=== PATIENT | female | born 1950 | race Caucasian/White ===

== ENCOUNTER 2016-07-08 22:47 | Emergency (ER) | payer MEDICARE ==
[~2016-07-08] VITALS: Ht 157.5 cm; Wt 52.3 kg
[~2016-07-08 22:47] MED LIST: AMLO10TA3 PO; LEVO50TA6 PO; TEMA7.5C14 PO; TRAM50TA2 PO; WALK1EAC55
[2016-07-08 22:54] VITALS: PULSE 113; RESP 20; O2SAT 100
--- NOTE | 2016-07-08 23:02 | ED.REPORT ---
HPI-General Illness Date of Service Jul 08, 2016 ED Provider: Wilbert Bauman MD Patient is a 66 year old female with a history of hypertension, COPD, GERD, depression, anxiety, and chronic nausea and vomiting due to aerophagia who presents to the ED with multiple medical complaints of various onsets. The patient states that she has had severe back pain for some time, worse in severity tonight. The patient states that her pain is especially severe if she sits down and that her pain is only improved with walking. The patient was incontinent of urine one night, ruining her bed. She has had to sleep on a pull- out mattress since that time, which has aggravated her back further. Patient has not been incontinent of urine since that episode. The patient states she begins to vomit whenever she stops walking for too long. However her ability to walk is being compromised by several musculoskeletal complaints. Her right knee and right hip are also causing her pain, which prevents her from walking. She also reports left ankle pain, stating that bearing any weight on her foot causes her extreme pain. The patient also states that she does not currently have any medication for anxiety or depression. She is currently very anxious. She attempted to speak with her physician about her lack of medications several days ago, but she missed the call. Patient also has a history of aerophagia, stating that her anxiety is making her aerophagia worse. While describing her symptoms, she states that each of these complaints it "killing her", often screaming out in pain. Nursing Notes Stated Complaint: ABDOMINAL PAIN, VOMITING Chief Complaint: General Complaint Nursing Notes Reviewed: Yes Allergies: Coded Allergies: Sulfa (Sulfonamide Antibiotics) (Verified Allergy, Severe, rash ithcy, 01/22/16) Scheduled Amitriptyline (Amitriptyline) 10 Mg Tablet 10 MG PO HS Amlodipine (Amlodipine) 10 Mg Tablet 10 MG PO DAILY Amlodipine (Amlodipine) 10 Mg Tablet 10 MG PO DAILY Fluoxetine (Fluoxetine) 40 Mg Capsule 40 MG PO DAILY Levothyroxine (Levothyroxine) 50 Mcg Tablet 100 MCG PO DAILY Levothyroxine (Synthroid) 50 Mcg Tablet 50 MCG PO DAILY Scheduled PRN Lorazepam (Lorazepam) 1 Mg Tablet 1 MG PO TID PRN PRN For Anxiety Temazepam (Temazepam) 7.5 Mg Capsule 7.5 MG PO HS PRN PRN Insomnia Tramadol (Tramadol) 50 Mg Tablet 100 MG PO BID PRN PRN For Pain General Time Seen by MD: 23:02 Chief Complaint Abdominal pain, Vomiting Hx Obtained From: Patient Arrived By: Walk-in Sudden in Onset?: No Onset Occurred: Onset unknown Symptom Duration: Since onset Location: : Ankle left: Back Quality: Painful Severity: Current: Severe Severity: Maximum: Severe Recent Healthcare: No recent doctor visit, No recent hospitalization Similar Sx Previous: Yes Past Medical History Past Medical History chronic nausea and vomiting - unknown cause Herniated dics low back Right knee tendinitis and bursitis Depression and anxiety gallstones history of blood transfusion hypothyroidism history of severe sepsis and respiratory failure due to aspiration pneumonia Reports: COPD, GERD, Hypertension Past Surgical History Reports: Cholecystectomy Family History noncontributory Smoking History Never Smoker Social History Alcohol Use: Denies alcohol use Drug Use: Denies drug use Other Social History: Good social support, Local resident Ambulatory Status Independent Review of Systems Full Review of Systems GI: Reports: Abdominal pain, Nausea, Vomiting Female: Reports: Incontinence Musculoskeletal: Reports: Back pain, Extremity pain Psychiatric: Reports: Anxiety, Depression Complete sys rev & neg: except as marked. Physical Exam Vital Signs Vital Signs Date Time Temp Pulse Resp B/P Pulse Ox O2 Delivery O2 Flow Rate FiO2 07/09/16 00:36 109 16 186/81 97 Room Air 07/08/16 22:54 36.3 113 20 100 Room Air Initial VS: Reviewed Head / Eyes: Atraumatic, Normocephalic, PERRL ENT: Conjunctiva normal, No scleral icterus Neck: Supple, Full range of motion Skin: Warm, Dry, No cyanosis Neurologic: Alert, Oriented, Nonfocal General/Constitutional: Awake, Alert Behavior: Positive: Anxious pacing around the room, periodically screaming out in pain no physiologic distress hyperaesthetic, reactive to any touch exam limited by mental status Respiratory / Chest: No respiratory distress Cardiovascular: Heart rate NL Abdomen: Soft, Non-tender, No guarding, No rebound Back: No midline vertebral tend Flank / Spine / Paraspinal: Positive: Lumbar paraspinal tend... (over the sacrum) Lower Extremity / Pelvis / MS: No deformity, Neurologic intact, Vascular intact Ankle / Foot: No swelling, No erythema, Neurologic intact, Vascular intact both ankles are tneder, but no visible swelling bunion and hammer toe deformity of the right foot Abnormal Mood/Affect: Positive: Anxious Interpretation & Diagnostics X-Ray Interpretation Xray Interpretation: Impression: Constipation. Degenerative changes. No acute fracture. Study Performed: X-ray Lumbar Spine Interpretation / Wet Read by: Wet read ED physician Xray Interpretation: Impression: No acute fracture. X-Ray Ordered: Ankle left Xray Interpretation: Impression: No acute fracture. X-Ray Ordered: Hip right Re-Eval/Medical Decision Med Decision/Clinical Course 66-year-old female with severe anxiety, depression, and generalized pains that appear to be related mostly to osteoarthritis. I had a long discussion with her about the chronic management of this and the nonutility of pain medicines in the chronic setting. Strategies need to include physical therapy, suppression of transmission of the spinal level, treatment of depression and anxiety, and unfortunately, she is intolerant of NSAIDs with her multiple stomach issues. I renewed her noncontrolled meds including amlodipine levothyroxine and fluoxetine. I added 10 mg of amitriptyline nightly for sleep and for spinal level suppression of pain in pulses. She is seriously anxious and has previously been prescribed lorazepam, although she has not been on it recently we will give her a brief supply also of Ativan as a muscle spasm reduce her anxiety and, again until her family doctor can assess the situation and decide on continuation or not. She is discharged now much improved after taking her prescribed meds. Source of Hx: Old records Time of Eval: 00:21 Patient Status: Condition improved Re-Evaluation/Progress Note: Rechecked the patient to discuss the result of her x-rays. No acute problem was identified. She will be discharged with medications for her depression and anxiety. She will also be restarted on her other medications. Patient understands and agrees with the plan to be discharged home. Discharge instructions and follow-up discussed. All questions were addressed. Return to the ED warnings given. Counseled Regarding: Diagnosis, Need for follow-up, When/why to return to ED Discharge & Departure Primary Impression: Degenerative arthritis Osteoarthritis location: unspecified site Osteoarthritis type: unspecified Qualified Code: M19.90 - Unspecified osteoarthritis, unspecified site Additional Impressions: Anxiety Back pain Back pain location: low back pain Chronicity: acute Back pain laterality: unspecified Sciatica presence: with sciatica presence unspecified Qualified Code: M54.5 - Low back pain Depression Depression Type: major depressive disorder Major depression recurrence: recurrent Active/Remission status: currently active Major depression episode severity: unspecified Qualified Code: F33.9 - Major depressive disorder, recurrent, unspecified Hip pain Laterality: right Qualified Code: M25.551 - Pain in right hip Disposition: Home Discharge Condition All VS Reviewed: Yes Condition: Stable Patient Instructions: Acute Low Back Pain (ED), Generalized Anxiety Disorder ( ED), Major Depression (DC), Osteoarthritis (ED) Additional Instructions: Your x-ray shows widespread degenerative arthritis. This alone can account for your pain. The management of arthritis as a long-term issue, and needs to be undertaken by your primary care doctor. It is important that you follow-up closely with your doctor. Call her tomorrow for follow-up as soon as possible. Resume prescribed medicines. I can provide a two-week supply, until you can see your doctor. I cannot renew your tramadol, as this is a controlled substance. Resume your amlodipine, Synthroid, fluoxetine. I am adding lorazepam both for anxiety and for muscle relaxer. I am adding amitriptyline for nighttime use to aid with sleep, and to prevent pain transmission at the spinal level. Referrals: Karli Michaels (PCP) Scribe Attestation Portions of this note were transcribed by Italia Weiss. I, Dr. Bauman personally performed the history, physical exam and medical decision-making; I reviewed and confirmed the accuracy of the information in the transcribed note. Signed by: Lilian Augustin, 07/09/2016 0023 copies to: Karli Michaels Christopher W MD Jul 08, 2016 23:02 Italia Weiss Jul 08, 2016 23:09
[2016-07-08] MEDS ORDERED: LORazepam 1 mg Tablet PO ONE (23:25)
[2016-07-09] MEDS ORDERED: LEVO50TA83 PO (00:17)
[2016-07-09] MEDS ORDERED: LORA1TAB PO (00:17)
[2016-07-09] MEDS ORDERED: FLUO40CA PO (00:17)
[2016-07-09] MEDS ORDERED: AMLO10TA3 PO (00:17)
[2016-07-09] MEDS ORDERED: AMIT10TA6 PO (00:17)
[2016-07-09 00:36] VITALS: BP 186/81; PULSE 109; RESP 16; O2SAT 97
--- NOTE | 2016-07-09 08:42 | DRSVH ---
PROCEDURE: X-RAY LEFT ANKLE, MINIMUM THREE VIEWS ([id number]) INDICATIONS: pain, chronic and worse this week TECHNIQUE: 3 views of the ankle were acquired. COMPARISON: None. FINDINGS: Bones: No fractures or dislocations. Ankle mortise is normally aligned. No suspicious bony lesions . Soft tissues: No tibiotalar joint effusion. Achilles tendon appears normal. IMPRESSION: No displaced fracture seen. If there is continued pain, followup exam or additional eitan ging such as MRI or CT could be performed for further assessment. Dictated by: Mehrdad Figueroa RRA Interpreted: Ashley Bonilla MD on 07/09/2016 at 8:40 Transcribed by: SAARH on 07/09/2016 at 8:42 Approved by: Ashley Bonilla MD, PhD on 07/09/2016 at 18:03
--- NOTE | 2016-07-09 08:44 | DRSVH ---
PROCEDURE: X-RAY PELVIS W/LAT HIP (RT) ([id number]) INDICATIONS: pain, chronic and worse this week TECHNIQUE: AP pelvis with lateral view(s) of the right hip(s). COMPARISON: None. FINDINGS: Bones: No fractures or dislocations. Pelvic ring appears intact. No suspicious bony lesions. Mild joint narrowing with periarticular osteophyte formation. Soft tissues: The visualized bowel gas pattern is normal. No suspicious soft tissue calcifications. Surgical clip projected over the pelvis. IMPRESSION: Mild symmetric hip joint degeneration. Dictated by: Mehrdad Figueroa [facility] Interpreted: Ashley Bonilla MD on 07/09/2016 at 8:44 Transcribed by: SARAH on 07/09/2016 at 8:44 Approved by: Ashley Bonilla MD, PhD on 07/09/2016 at 18:04
--- NOTE | 2016-07-09 08:44 | DRSVH ---
PROCEDURE: X-RAY LUMBAR SPINE, 2 OR 3 VIEW INDICATIONS: pain, chronic and worse this week TECHNIQUE: 3 views of the lumbar spine were acquired. COMPARISON: None. FINDINGS: Bones: 5 [id number] vertebrae grade 1 retrolisthesis L4-L5. Multilevel disc degeneration, moder ate at the L5-S1 level. Lower lumbar spine facet joint arthropathy. No vertebral body compression f ractures. No suspicious bony lesions. Soft tissues: Overlying bowel gas pattern is normal. No suspicious soft tissue calcifications. Vas cular calcifications indicate atherosclerosis. IMPRESSION: Multilevel degenerative change. Dictated by: Mehrdad WOODS Interpreted: Ashley Bonilla MD on 07/09/2016 at 8:42 Transcribed by: SARAH on 07/09/2016 at 8:43 Approved by: Ashley Bonilla MD, PhD on 07/09/2016 at 18:04
== END 2016-07-09 00:36 | disposition home or self-care (01) ==
LOC: SED 22:47
DX: M47.897 Other spondylosis, lumbosacral region (principal); M54.5 Low back pain; F41.9 Anxiety disorder, unspecified; F33.9 Major depressive disorder, recurrent, unspecified; M25.551 Pain in right hip; I10 Essential (primary) hypertension; J44.9 Chronic obstructive pulmonary disease, unspecified; K21.9 Gastro-esophageal reflux disease without esophagitis; F45.8 Other somatoform disorders; Z88.2 Allergy status to sulfonamides

== ENCOUNTER 2016-08-23 15:39 | Emergency (ER) | payer MEDICARE ==
[~2016-08-23] VITALS: Ht 157.5 cm; Wt 56.8 kg
[~2016-08-23 15:39] MED LIST changes: +AMIT10TA6 PO; +FLUO40CA PO; +LEVO50TA83 PO; +LORA1TAB PO
[2016-08-23 15:41] VITALS: BP 181/115; PULSE 110; RESP 20; O2SAT 100
--- NOTE | 2016-08-23 18:01 | ED.REPORT ---
HPI-Extremity Problem Lower Date of Service August 23, 2016 ED Provider: Hugh Azevedo PA-C Mariangel is a 66-year-old female with a history of degenerative disc disease, aerophagia, bursitis presented with chief complaint of right knee pain. Patient states the pain has been worsening for the last 3 years. She can recall no recent trauma. She reports that the pain is so bad now that she cannot eat. She states that she feels dizzy from lack of eating. "Like my head is going to spin off." She reports walking a great deal to relieve her aerophagia, which aggravates her knee. Complains of back pain which she states is chronic and at baseline. It is typically treated with tramadol. She states that she only gets 3 a day and to 2 time is not enough to alleviate her pain. Denies fever, chills, bowel/bladder dysfunction, saddle anesthesia. Nursing Notes Stated Complaint: DIZZY, RIGHT KNEE PAIN AND BACK PAIN Chief Complaint: General Complaint Nursing Notes Reviewed: Yes Allergies: Coded Allergies: Sulfa (Sulfonamide Antibiotics) (Verified Allergy, Severe, rash ithcy, 03/01) Scheduled Amitriptyline (Amitriptyline) 10 Mg Tablet 10 MG PO HS Amlodipine (Amlodipine) 10 Mg Tablet 10 MG PO DAILY Amlodipine (Amlodipine) 10 Mg Tablet 10 MG PO DAILY Fluoxetine (Fluoxetine) 40 Mg Capsule 40 MG PO DAILY Levothyroxine (Levothyroxine) 50 Mcg Tablet 100 MCG PO DAILY Levothyroxine (Synthroid) 50 Mcg Tablet 50 MCG PO DAILY Scheduled PRN Lorazepam (Lorazepam) 1 Mg Tablet 1 MG PO TID PRN PRN For Anxiety Temazepam (Temazepam) 7.5 Mg Capsule 7.5 MG PO HS PRN PRN Insomnia Tramadol (Tramadol) 50 Mg Tablet 100 MG PO BID PRN PRN For Pain General Time Seen by MD: 17:29 Chief Complaint Knee injury right Past Medical History Past Medical History chronic nausea and vomiting - unknown cause Herniated dics low back Right knee tendinitis and bursitis Depression and anxiety gallstones history of blood transfusion hypothyroidism history of severe sepsis and respiratory failure due to aspiration pneumonia Reports: COPD, GERD, Hypertension Past Surgical History Reports: Cholecystectomy Family History noncontributory Smoking History Never Smoker Social History Alcohol Use: Denies alcohol use Drug Use: Denies drug use Other Social History: Good social support, Local resident Ambulatory Status Independent Review of Systems Negative unless stated otherwise in history of present illness Physical Exam General: Well appearing, well developed, well nourished, no acute distress. Sitting on the gurney eating cookies and a sandwich. Periodically becomes escalated during history taking stating "you are not helping me" Hip: Nontender Right knee: Normal to inspection, negative redness, swelling, heat. Global tenderness, greatest over medial joint line and tibial plateau. Patient would not tolerate range of motion, however noted to spontaneously range the knee while moving in bed. Right ankle: Normal to inspection, globally tender. Left knee: Normal to inspection, and over medial and lateral joint lines. Head: Atraumatic, normocephalic. Eyes: No scleral icterus or injection. No discharge. Vision grossly intact. ENT: Voice clear, hearing grossly intact. Respiratory: Regular rate and rhythm. Breath sounds present, clear to auscultation and equal bilaterally. No respiratory distress. No increased work of breathing, speaks in complete sentences. Cardiovascular: Regular rate and rhythm, without murmur, gallop or rub. No pedal edema. Skin: Warm and dry. Neurological: Antalgic gait. Otherwise nonfocal. Psychological: Alert and oriented 3. Extremely dramatic behavior. Initial Vital Signs Vital Signs (First) Date Time Temp Pulse Resp B/P Pulse Ox O2 Delivery O2 Flow Rate FiO2 08/23/16 15:41 36.8 110 20 181/115 100 Room Air Initial VS: Vital signs abnormal (tachycardia, elevated blood pressure) Interpretation & Diagnostics X-Ray Interpretation Xray Interpretation: PROCEDURE: X-RAY RIGHT KNEE, THREE VIEWS ([id number]) INDICATIONS: 66 year-old female with right knee pain.. IMPRESSION: No radiographic explanation for right knee pain. Interpretation / Wet Read by: Interpret - Radiologist, Interp - P Re-Eval/Medical Decision Med Decision/Clinical Course 66-year-old woman with a history of chronic knee and back pain presents with right knee pain. Reports her pain worsening over the last 3 years to the point where she is no longer able to eat. It is noted that she is eating in the exam room. Reports dizziness secondary to not eating. Physical examination reveals tenderness in many locations, including the medial joint line of her right knee , as well as her right ankle, left knee. At one point she yelled at me, indicating that my touching the handrail of her bed caused her right knee hurt. Patient is extremely dramatic, and often screaming that her knee hurts apparently without provocation. Offered acetaminophen and ketorolac for analgesia. X-ray of her right knee reveals no fractures. Patient departed before receiving results or discharge instructions. I do not believe her pain is caused by an immediately dangerous condition. Back pain is without red flag symptoms for cauda equina syndrome, abscess. I do not believe her knee pain is caused by a septic joint as there is no redness, swelling, heat. I believe she is competent to make this decision. Discharge & Departure Departure Notes Patient departed the department prior to receiving x-ray results or discharge instructions. I do not believe her pain is caused by an immediately dangerous condition. I believe she is competent to make this decision. Impression: Primary Impression: Right knee pain Chronicity: chronic Qualified Code: M25.561 - Pain in right knee Disposition: AGAINST MEDICAL ADVICE Discharge Condition All VS Reviewed: Yes Condition: Stable Referrals: Karli Michaels (PCP) EDSupervising Provider for APC: Burton Nelson MD copies to: Karli Michaels Seth PA-C August 23, 2016 18:01
[2016-08-23 18:25] VITALS: BP 186/89; PULSE 94; RESP 18; O2SAT 98
--- NOTE | 2016-08-23 19:23 | DRSVH ---
PROCEDURE: X-RAY RIGHT KNEE, THREE VIEWS ([id number]) INDICATIONS: 66 year-old female with right knee pain. TECHNIQUE: 3 views of the knee were acquired. COMPARISON: None. FINDINGS: Bones: No fractures or dislocations. No joint degeneration. No suspicious bony lesions. Soft tissues: No joint effusion. No suspicious soft tissue calcifications. IMPRESSION: No radiographic explanation for right knee pain. Dictated by: Jaycob Patel M.D. on 08/23/2016 at 19:21 Approved by: Jaycob Patel M.D. on 08/23/2016 at 19:21
[2016-08-24] MEDS ORDERED: TRAM50TA2 PO (09:26)
[2016-08-24] MEDS ORDERED: QUET50TA55 PO (12:47)
[2016-08-24] MEDS ORDERED: AMT50T PO (12:47)
[2016-08-24] MEDS ORDERED: LEVO50TA6 PO (12:47)
[2016-08-24] MEDS ORDERED: ALPR0.5T8 PO (12:47)
[2016-08-24] MEDS ORDERED: MIRT7.5T8 PO (12:47)
[2016-08-24] MEDS ORDERED: BUSP10TA2 PO (12:47)
[2016-08-24] MEDS ORDERED: ONDA-54 PO (12:47)
[2016-08-24] MEDS ORDERED: PANT40TA3 PO (12:47)
[2016-08-24] MEDS ORDERED: DULO20CA18 PO (12:47)
[2016-08-24] MEDS ORDERED: BACL10TA PO (12:47)
[2016-08-24] MEDS ORDERED: SODI1TAB2 PO (15:19)
== END 2016-08-23 19:35 | disposition home or self-care (01) ==
LOC: SED 15:39
DX: M25.561 Pain in right knee (principal); I10 Essential (primary) hypertension; K21.9 Gastro-esophageal reflux disease without esophagitis; Z86.19 Personal history of other infectious and parasitic diseases; Z88.2 Allergy status to sulfonamides
CPT/HCPCS: 73562; 96372; 99284; J1885

== ENCOUNTER 2016-08-24 04:02 | Inpatient (IN) | payer MEDICARE, OTHER ==
[2016-08-24] VITALS (7 sets, daily range): BP systolic 140–184; BP diastolic 82–116; PULSE 98–112; RESP 18–24; O2SAT 99–100
[~2016-08-24] VITALS: Ht 157.5 cm; Wt 56.1 kg
--- NOTE | 2016-08-24 04:09 | ED.REPORT ---
HPI-General Illness Date of Service August 24, 2016 ED Provider: Wilbert Bauman MD 66 year old female with a history of chronic nausea and vomiting, GERD, and cholecystectomy presents to the ER accompanied by her complaining of intractable nausea and vomiting onset yesterday afternoon. Patient denies fever and diarrhea. She also complains of chronic right knee pain secondary to tendonitis and bursitis. Nursing Notes Stated Complaint: GENERAL COMPLAINT Chief Complaint: General Complaint Nursing Notes Reviewed: Yes Allergies: Coded Allergies: Sulfa (Sulfonamide Antibiotics) (Verified Allergy, Severe, rash ithcy, 03/01) Scheduled Amitriptyline (Amitriptyline) 10 Mg Tablet 10 MG PO HS Amlodipine (Amlodipine) 10 Mg Tablet 10 MG PO DAILY Amlodipine (Amlodipine) 10 Mg Tablet 10 MG PO DAILY Fluoxetine (Fluoxetine) 40 Mg Capsule 40 MG PO DAILY Levothyroxine (Levothyroxine) 50 Mcg Tablet 100 MCG PO DAILY Levothyroxine (Synthroid) 50 Mcg Tablet 50 MCG PO DAILY Scheduled PRN Lorazepam (Lorazepam) 1 Mg Tablet 1 MG PO TID PRN PRN For Anxiety Temazepam (Temazepam) 7.5 Mg Capsule 7.5 MG PO HS PRN PRN Insomnia Tramadol (Tramadol) 50 Mg Tablet 100 MG PO BID PRN PRN For Pain General Time Seen by MD: 04:09 Chief Complaint Vomiting Hx Obtained From: Patient Arrived By: Walk-in Sudden in Onset?: No Onset Occurred: 1 day ago Symptom Duration: Since onset Associated with: Denies: Fever Similar Sx Previous: Yes Past Medical History Past Medical History chronic nausea and vomiting - unknown cause Herniated dics low back Right knee tendinitis and bursitis Depression and anxiety gallstones history of blood transfusion hypothyroidism history of severe sepsis and respiratory failure due to aspiration pneumonia Reports: COPD, GERD, Hypertension Past Surgical History Reports: Cholecystectomy Family History noncontributory Smoking History Never Smoker Social History Alcohol Use: Denies alcohol use Drug Use: Denies drug use Other Social History: Good social support, Local resident Ambulatory Status Independent Review of Systems Full Review of Systems Constitutional: Denies: Chills, Fever Respiratory: Denies: Non-productive cough Cardiovascular: Denies: Chest pain GI: Reports: Nausea, Vomiting, Denies: Constipation, Diarrhea Musculoskeletal: Reports: Joint pain (Right Knee) Complete sys rev & neg: except as marked. Physical Exam Vital Signs Vital Signs Date Time Temp Pulse Resp B/P Pulse Ox O2 Delivery O2 Flow Rate FiO2 08/24/16 04:09 36.4 103 24 181/99 99 Room Air Initial VS: Reviewed Head / Eyes: Atraumatic, Normocephalic, PERRL Neck: Supple, Non-tender, Full range of motion Respiratory: Breath sounds normal, Clear to auscultation, No respiratory distress Cardiovascular: Regular rate & rhythm, Heart sounds normal, Intact distal pulses Extremities: Vascular intact, Neuro intact, No swelling, No tenderness Skin: Warm, Dry, No cyanosis Neurologic: Alert, Oriented, Nonfocal General/Constitutional: Awake, Alert, Well developed Whiny. Dramatic. Abdomen: Soft, No guarding, No rebound Mildly tender Mildly protuberant Psychiatric: Not homicidal, No hallucinations, Cognitive function NL Odd affect. Interpretation & Diagnostics Lab Results Interpretation Result Diagram: 08/24/16 0515 08/24/16 0515 Test 08/24/16 05:15 White Blood Count 12.4th/mm3 (3.8-10.1) Red Blood Count 4.05mil/mm3 (3.90-5.20) Hemoglobin 12.0g/dL (12.0-15.6) Hematocrit 33.4% (35.0-46.0) Mean Corpuscular Volume 82.5fL (81-100) Mean Corpuscular Hemoglobin 29.6pg (27.0-35.0) Mean Corpuscular Hemoglobin Concent 35.9% (32.0-37.0) Red Cell Distribution Width 12.0% (12.3-15.4) Platelet Count 416bil/L (150-400) Neutrophils (%) (Auto) 84.5% (40-74) Lymphocytes (%) (Auto) 9.7% (14-46) Monocytes (%) (Auto) 4.7% (4-12) Eosinophils (%) (Auto) 0.3% (0-5) Basophils (%) (Auto) 0.2% (0-3) Prothrombin Time 9.4sec (8.1-12.5) Prothromb Time International Ratio 0.88ratio Sodium Level 122mEq/L (134-144) Potassium Level 3.8mEq/L (3.5-5.2) Chloride Level 83mEq/L (97-108) Carbon Dioxide Level 20mmol/L (18-29) Blood Urea Nitrogen 16mg/dL (8-27) Creatinine 0.59mg/dL (0.57-1.00) Estimat Glomerular Filtration Rate 146mL/min (>59) Glucose Level 104mg/dL (60-99) Calcium Level 9.7mg/dL (8.5-10.1) Magnesium Level 1.8mg/dL (1.6-2.6) Total Bilirubin 0.3mg/dL (0.0-1.2) Aspartate Amino Transf (AST/SGOT) 25U/L (0-50) Alanine Aminotransferase (ALT/SGPT) 20U/L (0-32) Alkaline Phosphatase 99U/L (25-165) Total Protein 7.8g/dL (6.4-8.4) Albumin 4.3g/dL (3.4-5.0) Lipase 16U/L (13-60) Hold Vasquez Top Tube Received (Received) ECG Interpretation ECG Interpretation: Sinus rhythm, rate 91 Right atrial enlargement Right axis deviation Consider LVH Time: 04:54 Interpreted by: ED physician Re-Eval/Medical Decision Med Decision/Clinical Course Continuing to have intermittent knee pain and nausea. Requesting pain meds and given Toradol and tramadol, which she has been prescribed in the past. Affect continues anxious, bizarre, manipulative. Signed out of [address] Almaguer Source of Hx: Old records Counseled Regarding: Diagnosis, Lab results Discharge & Departure Primary Impression: Intractable vomiting Additional Impression: Right knee pain Discharge Condition All VS Reviewed: Yes Condition: Stable Referrals: Karli Michaels (PCP) Care Transferred to: Dr. Almaguer Care Transferred at: 06:00 Lilian Attestation Portions of this note were transcribed by Rad Glynn. I, Dr. Bauman, personally performed the history, physical exam and medical decision-making; I reviewed and confirmed the accuracy of the information in the transcribed note. Signed by: Lilian Rivera, 08/24/2016 at *time* copies to: Karli Michaels Christopher W MD August 24, 2016 04:09 RAD GLYNN August 24, 2016 04:17
[2016-08-24] MEDS ORDERED: 0.9% Sodium Chloride 1,000 ML IV ONE (04:13)
[2016-08-24] MEDS ORDERED: Pantoprazole 4 mg/mL 10 mL Inj IVPUSH ONE (04:15)
[2016-08-24] MEDS ORDERED: Ondansetron 2 mg/mL 2 mL Inj IVPUSH ONE (04:15)
[2016-08-24 05:20] LABS: BASOPHILS % (AUTO) 0.2 % (0-3); EOSINOPHILS % (AUTO) 0.3 % (0-5); MONOCYTES % (AUTO) 4.7 % (4-12); Mean Corpuscular Hemoglobin 29.6 pg (27.0-35.0); Mean Corpuscular Volume 82.5 fL (81-100); NEUTROPHILS % (AUTO) 84.5 % (40-74); Platelet Count 416 bil/L (150-400)
[2016-08-24 05:35] LABS: INR 0.88 ratio
[2016-08-24 05:44] LABS: Magnesium 1.8 mg/dL (1.6-2.6)
[2016-08-24] MEDS ORDERED: Haloperidol 5 mg/mL Inj IVPUSH ONE (06:10)
[2016-08-24] MEDS ORDERED: 0.9% Sodium Chloride 50 ML ONE (06:14)
[2016-08-24 07:44] LABS: APPEARANCE,URINE CLEAR (CLEAR,HAZY); COLOR,URINE STRAW (YELLOW)
[2016-08-24 07:45] LABS: OCCULT BLOOD,URINE TRACE (NEGATIVE); UROBILINOGEN,URINE NORMAL (NORMAL)
--- NOTE | 2016-08-24 08:11 | DRSVH ---
PROCEDURE: CT ABDOMEN AND PELVIS WITH CONTRAST ([id number]) INDICATIONS: gen abd pain TECHNIQUE: After the administration of intravenous contrast, 5 mm thick sections acquired from the diaphragm to the symphysis. 5 mm coronal and sagittal reformats were acquired. For radiation dose reduction, the following was used: automated exposure control, adjustment of mA and/or kV according to patient ramy stone COMPARISON: [facility], CT, CT ABD PELVIS W CON, 01/22/2016, 23:50. FINDINGS: ABDOMEN: Lung bases: Lung bases are clear. Heart size is normal. Solid organs: Multiple stable hypodensities throughout the liver consistent with benign hepatic cysts . Otherwise the liver is normal. The spleen is normal in size and enhancement. Gallbladder is surgic ally absent. Biliary system is non dilated. Pancreas enhances normally. No adrenal nodules. Bilate ral prominent collecting systems with mild right-sided ureterectasis. There is a 9 mm linear density adjacent to the dependent bladder wall (se 2 im 59). Uterus is present. Peritoneum and bowel: Bowel loops demonstrate normal wall thickness and caliber. No free fluid or a ir. Nodes and vessels: No retroperitoneal or mesenteric adenopathy by size criteria. Aorta and inferior vena cava are normal in size. Miscellaneous: No ventral hernias. PELVIS: Genitourinary: Bladder wall thickness is normal. Miscellaneous: No inguinal hernias or adenopathy. Bones: No suspicious bony lesions. No vertebral body compression fractures. IMPRESSION: 1. Right-sided hydronephrosis and ureterectasis may represents the sequelae of a radiographically occ ult tiny distal right ureteral calculus or a recently passed calculus. If patient's clinical symptoms continue recommend a CT urogram to evaluate for noncalcified obstructing lesion. 2. Linear metallic density adjacent to or less likely in the posterior wall of the bladder likely rep resents a tubal occlusion device. Please correlate with clinical history for placement of tubal occlu kaylynn devices. 3. There are no urgent discrepancy with the pulmonary report. Dictated by: Mainor Dyer M.D. on 08/24/2016 at 7:59 Approved by: Mainor Dyer M.D. on 08/24/2016 at 8:09
[2016-08-24] MEDS ORDERED: MetoCLOpramide 5 mg/mL 2 mL Inj IVPUSH PRN (09:25)
[2016-08-24] MEDS ORDERED: HYDROmorphone 0.5 mg/0.5 mL iSecure Syringe IVPUSH PRN (09:25)
[2016-08-24] MEDS ORDERED: Ondansetron 2 mg/mL 2 mL Inj IVPUSH PRN ×2 (09:25)
[2016-08-24] MEDS ORDERED: Polyethylene Glycol (PEG) 17 Gm Powder PO PRN (09:25)
[2016-08-24] MEDS ORDERED: TRAM50TA2 PO (09:26)
[2016-08-24] MEDS: 0.9% Sodium Chloride 1,000 ML IV SCH ×2 (10:58→21:45)
[2016-08-24] MEDS: HYDROcodone-APAP 5-325 mg Tablet PO PRN ×3 (11:00→16:45)
--- NOTE | 2016-08-24 11:31 | NUR ---
MOC ARRIVAL Patient arrived from ER at 1015, report recieved from Lori Haddad RN. Patient came into ER c/o nausea and vomiting. She has denied n/v on MOC but c/o back and right knee pain, Percocet x1 given with good relief. Patient's Na 122, NS 100 started, MD made aware. Patient appears emotionaly liable, Hx of anxiety and depression. Admit and med rec completed, VS BP 160's/80, HR 100, resp 22, RA 94%.
[2016-08-24] MEDS ORDERED: ALPR0.5T8 PO (12:47)
[2016-08-24] MEDS ORDERED: MIRT7.5T8 PO (12:47)
[2016-08-24] MEDS ORDERED: QUET50TA55 PO (12:47)
[2016-08-24] MEDS ORDERED: PANT40TA3 PO (12:47)
[2016-08-24] MEDS ORDERED: ONDA-54 PO (12:47)
[2016-08-24] MEDS ORDERED: AMT50T PO (12:47)
[2016-08-24] MEDS ORDERED: BACL10TA PO (12:47)
[2016-08-24] MEDS ORDERED: DULO20CA18 PO (12:47)
[2016-08-24] MEDS ORDERED: BUSP10TA2 PO (12:47)
[2016-08-24] MEDS ORDERED: LEVO50TA6 PO (12:47)
--- NOTE | 2016-08-24 15:07 | PCM.HPMED ---
Subjective Date of Service August 24, 2016 Primary Provider: Admitting Physician: Glynn Contreras MD Primary Care Physician: Karli Michaels Attending Physician: Glynn Contreras MD Chief Complaint: Nausea and vomiting History of Present Illness: 66-year-old female with a history of aerophagia where she belches and occasionally becomes nauseous who became acutely nauseated yesterday. Her tells me he been coming on for 2 or 3 days but it really picked up's team yesterday and they came to the emergency room after midnight today. At the time when I am meeting her her nausea is resolved however she is hyponatremic so we are hydrating her with normal saline and treating for symptoms which seem to have largely resolved at this time. Patient tells me she has had multiple visits for nausea and vomiting she has aerophagia and has had extensive GI workups and finally she has had speech therapy for her aerophagia and swallowing issue and as long as she belches she generally gets ahead of it in her abdomen does not become distended. Somewhere along the way she became vertiginous and whether that aggravated the nausea and vomiting or nausea and vomiting aggravated dizziness/vertigo is not clear but she got into a spiral where she was having nausea and vomiting and dizziness along with abdominal pain and came to the emergency room. There was no fever diarrhea or other symptoms other than the right knee pain at that she attributes to tendinitis/bursitis however I believe that she may be having some sciatica because she has chronic back issues and nausea/vomiting may have aggravated them. Review of Systems: Gen.: No fevers chills weight loss weight gain Eyes: no visual disturbances or blurring vision HEENT: No nose/throat drainage, no pain in ears or throat, no hearing loss Lymph: No lymph nodes noted Cardiac: No chest pain, orthopnea, PND, palpitations , pedal edema or dyspnea on exertion Pulmonary: no cough, wheezing or bringing up of sputum GI: Noblood or black in the stool nausea/vomiting no hematemesis and she has had abdominal pain : no dysuria hematuria urinary frequency or decrease in urine output Musculoskeletal: Joint swelling no joint pain no new muscle aches or back pain Acute on chronic right knee pain with spasming of the right leg Neuro: No syncope, seizures no loss of consciousness no new focal weakness, numbness or tingling Vertiginous dizziness now resolved Psychiatric: New new anxiety insomnia or depression Endocrine: No new heat or cold intolerances polyuria or polydipsia Hematology: No lymphadenopathy or easy bleeding or bruising noted skin: No new rashes, stasis dermatitis Allergies Coded Allergies: Sulfa (Sulfonamide Antibiotics) (Verified Allergy, Severe, rash ithcy, 03/31) Home Medications Amitriptyline (Amitriptyline) 10 Mg Tablet 10 MG PO HS Amlodipine (Amlodipine) 10 Mg Tablet 10 MG PO DAILY Amlodipine (Amlodipine) 10 Mg Tablet 10 MG PO DAILY Fluoxetine (Fluoxetine) 40 Mg Capsule 40 MG PO DAILY Levothyroxine (Levothyroxine) 50 Mcg Tablet 100 MCG PO DAILY Levothyroxine (Synthroid) 50 Mcg Tablet 50 MCG PO DAILY Salt tablets I believe 1 g per day Scheduled PRN Lorazepam (Lorazepam) 1 Mg Tablet 1 MG PO TID PRN PRN For Anxiety Temazepam (Temazepam) 7.5 Mg Capsule 7.5 MG PO HS PRN PRN Insomnia Tramadol (Tramadol) 50 Mg Tablet 100 MG PO BID PRN PRN For Pain PMH chronic nausea and vomiting - unknown cause Herniated dics low back Right knee tendinitis and bursitis Depression and anxiety gallstones history of blood transfusion hypothyroidism history of severe sepsis and respiratory failure due to aspiration pneumonia Reports: COPD, GERD, Hypertension Past Surgical History Cholecystectomy Family History-no known history of hypertension diabetes or cancer Smoking History Never Smoker Social History Alcohol Use: Denies alcohol use Drug Use: Denies drug use Other Social History: Good social support, Local resident Social History Hx Alcohol Use: No Hx Substance Use: No Hx Tobacco Use: No Smoking Status: Never Smoker Exam Vital Signs Vital Sign - Last Date Time Temp Pulse Resp B/P Pulse Ox O2 Delivery O2 Flow Rate FiO2 08/24/16 11:01 36.7 100 20 165/86 100 Room Air Intake and Output 08/23/16 08/23/16 08/24/16 Cumulative From/Thru 15:00 23:00 07:00 08/24/16 04:09 - 08/24/16 05:04 Intake Total 1000 ml 1000 ml Balance 1000 ml 1000 ml Intake IV Total 1000 ml 1000 ml Exam Gen.- A+ O 3 no apparent distress. Thin female sitting up in bed in good spirits Eyes- open conjunctiva clear, pupils equal nonicteric, no drainage no nystagmus Mouth- oral mucosa moist, no exudate ENT- ears normal, nose normal Neck- supple/trach midline CVS- RRR no murmur or gallop Lungs- CTA GI- NABS/NT soft, scaphoid Musc- moving 4 no obvious deformity Neuro- cranial nerves II through XII intact to gross examination, nonfocal Skin- warm and dry, no rashes/lesions/wounds noted Psych- pleasant and appropriate, Lab and Diagnostics Result Diagram: 08/24/1651408/24/16514 Assessment & Plan 66-year-old female with a history of nausea and vomiting and hyponatremia for which she is on salt tablets. I believe she had nausea and vomiting prompting dehydration and possible SIADH in addition to her chronic issue which may be aggravated by Ultram/fluoxetine as SSRIs can aggravate hyponatremia. If patient sodium is around 1:30 and her nausea and vomiting has resolved and she still feels the way she does I will be discharging her 08/25. #Nausea and vomiting-as of admission it seems resolved treat symptomatically #Hyponatremia-rehydrate with normal saline follow-up sodium if not appropriately elevating will check urine sodium. For now I believe this is aggravated by nausea and vomiting #Hypertension-continue home meds on parameters #Chronic back/right leg pain-continue Ultram and baclofen as previously #Prophylaxis-DVT with SCDs and enoxaparin, GI with famotidine #Disposition- full code from home Glynn Contreras MD August 24, 2016 15:07
[2016-08-24] MEDS ORDERED: SODI1TAB2 PO (15:19)
[2016-08-24] MEDS: Famotidine Inj 20 MG in IV Premix 1 EACH IV SCH (20:11)
--- NOTE | 2016-08-24 20:32 | NUR ---
BP BP is 184/116, has been trending high since arrival. Pt reports headache for 3 hrs. No BP meds ordered. Paged Dr. Blanco, awaiting reply. Addendum: 08/24/16 at 2036 [address] RN [address] Blanco ordered one dose amlodipine. Will administer and reassess.
--- NOTE | 2016-08-24 22:49 | NUR ---
NEURO Pt emotionally labile, changes subjects in middle of sentences, and narrates her actions. Upon start of shift, pt pulled out call light and was tangled with the IV and call light cords. [place] from hallway, pt yelling and crying out "It hurts, I'm in pain, oh help me." When entering room, pt stops yelling and speaks in a normal tone, states "When I talk, I don't hurt. But then I fall asleep and I start yelling, and can't go to sleep because my knee hurts." Tramadol given for pain. Pt easily distracted with TV. Since TV on, this nurse has not heard yelling. Pt later reports "I feel better. I guess that tramadol does work." Pt now sleeping. Hourly rounding. Addendum: 08/25/16 at 0644 by SONDRA GARCIA RN Awoke pt this morning to get vital signs. Pt at first calm but reported she had to void. When attempting to get her up, pt repeatedly yell "I can't lift my head, ow my stomach, I can't move my legs, I have to pee." Pt took multiple attempts to get up with a lot of encouragement. Pt yelling on way to toilet. On toilet, pt continued to yell "I can't pee, you told me not to pee, I can't pee, my stomach hurts, I'm dizzy, this hurts, I just want to , where is my , the pain, I just want to ." Gave pt one celestina. Pt took much encouragement to get back to bed and continued to yell on the way to bed. In bed, pt continued to say "I can't lift my head." Turned TV on as that helped last night for distraction. Pt continued to yell. Left room and pt after 20 minutes started to stop yelling.
[2016-08-25] MEDS: HYDROcodone-APAP 5-325 mg Tablet PO PRN ×4 (05:32→17:50)
[2016-08-25] MEDS: 0.9% Sodium Chloride 1,000 ML IV SCH ×2 (05:40→15:47)
[2016-08-25 05:55] VITALS: BP 131/79; PULSE 108; RESP 22; O2SAT 100
[2016-08-25 06:22] LABS: BASOPHILS % (AUTO) 0.4 % (0-3); EOSINOPHILS % (AUTO) 0.8 % (0-5); MONOCYTES % (AUTO) 6.3 % (4-12); Mean Corpuscular Hemoglobin 29.1 pg (27.0-35.0); Mean Corpuscular Volume 85.6 fL (81-100); NEUTROPHILS % (AUTO) 68.9 % (40-74); Platelet Count 459 bil/L (150-400)
[2016-08-25] MEDS: Famotidine Inj 20 MG in IV Premix 1 EACH IV SCH ×2 (08:06→20:52)
[2016-08-25 11:10] VITALS: BP 126/77; PULSE 95
[2016-08-25 11:12] VITALS: BP 127/77; PULSE 98
[2016-08-25 11:14] VITALS: BP 101/60; PULSE 100
--- NOTE | 2016-08-25 11:30 | NUR ---
Orthos Pt had reported to the hospitalist during rounds that she sometimes feels as though she will pass out when standing/walking. The pt had not mentioned this concern to this nurse when ambulating to and from the bathroom earlier. No changes noted in BP from lying to sitting, however, once the pt stood, she acted as though she was going to fall down and sat down on her bed. The pt had not been unsteady in this way the multiple times she ambulated to the bathroom. Pt was able to stand with two nurses, but was squirming in pain (her knee), saying, "I'm not happy, I was happy earlier." Systolic BP dropped 27 points. Due to the pt's movement, it is not clear if the BP reading is accurate and pt was in too much pain to attempt a second reading. After pt sat on the bed, she started smiling and laughing, stating, "I'm happy now!"
--- NOTE | 2016-08-25 14:20 | NUR ---
Social Work: Initial Assessment See initial assessment. EMR rviewed. Patient is a 66 y/o female admitted on 08/25/15 for hyponatremia per H&P. SW met with patient at bedside to complete initial assessment, SW role reviewed and discharge planning discussed. Patient alert and oriented. Pt has Medicare and [employer] supplemental insurance. Patients PCP is ERIKA Mckeon. DPOA paperwork provided to patient. Patients re-admit score is 2 low risk. Patient has no VA or LTC benefits. Pt lives in [place] with spouse in an apartment on the ground floor. Pt is independent at baseline and only occasionally uses a cane. Patient does not drive. Patient does have HH history with [facility] but no SNF history. Patient has a PT evaluation pending. SW will continue to follow for PT recommendation and to assist patient with discharge planning needs. Plan: Anticipated discharge home via POV when medically ready. SW to continue to follow for any PT or MD recommendations. SW to continue to follow for discharge needs. Halley Diaz LMSW, TERESA Addendum: 08/25/16 at 1432 by HALLEY PETERSON Amended: Links added.
--- NOTE | 2016-08-25 15:20 | PCM.PNMED ---
Subjective Date of Service August 25, 2016 Subjective Patient states that her nausea and vomiting are better. Now she is remembering that she has dizziness whenever she stands up and that she is, despite all her interactions with nursing she is failed to mention this to them. She does not even recall telling me that she was anxious to discharge home and would have gone yesterday had it not been for the sodium and my recommendation. Today she does not think it such a good idea to go home because of the dizziness and fall risk. No dyspnea no chest pain. Exam Vital Signs Vital Sign - Last Date Time Temp Pulse Resp B/P Pulse Ox O2 Delivery O2 Flow Rate FiO2 08/25/16 11:14 100 101/60 08/25/16 05:55 36.8 22 100 Room Air Intake and Output 08/24/16 08/24/16 08/25/16 Cumulative From/Thru 15:00 23:00 07:00 08/24/16 04:09 - 08/25/16 05:55 Intake Total 577 ml 1610 ml 3187 ml Output Total 1400 ml 1400 ml Balance 577 ml 210 ml 1787 ml Intake Oral 400 ml 400 ml IV Total 577 ml 1210 ml 2787 ml Output Urine Total 1400 ml 1400 ml Exam Gen.- A+ O 3 no apparent distress. Thin female sitting up in bed in good spirits Eyes- open conjunctiva clear, pupils equal nonicteric, no drainage ENT- ears normal, nose normal, hearing intact Neck- supple/trach midline CVS-normal rate Lungs-normal rate no accessory muscle usage GI-flat Musc- moving 4 no obvious deformity Neuro- cranial nerves II through XII intact to gross examination, nonfocal Skin- warm and dry, no rashes/lesions/wounds noted Psych- pleasant and appropriate, kind of tangential heart to get a read she seems to change what she is saying almost moment to moment. Lab and Diagnostics Result Diagram: 08/25/1653908/25/16539 Assessment & Plan 66-year-old female with a history of nausea and vomiting and hyponatremia for which she is on salt tablets. I believe she had nausea and vomiting prompting dehydration and possible SIADH in addition to her chronic issue which may be aggravated by Ultram/fluoxetine as SSRIs can aggravate hyponatremia. If patient sodium is around 1:30 and her nausea and vomiting has resolved and she still feels the way she does I will be discharging her 08/25. 08/25 patient feels her presenting symptoms are totally resolved but mentions dizziness and falling down as a major concern that needs to be addressed prior to going home. Her getting orthostatics and physical therapy consult. Hopefully patient will be agreeable to discharge 08/26. I thought she was going to be anxious to go home today. Stop amlodipine. Patient medically complex at high risk for complications. #Dizziness/orthostasis -Continue IV fluids -Random a.m. cortisol level -Starting Florinef, stopping amlodipine which he already got today 08/25. *Would order support hose if I could figure out how to do it on [employer] #Nausea and vomiting-as of admission it seems resolved treat symptomatically. #Hyponatremia-rehydrate with normal saline follow-up sodium if not appropriately elevating will check urine sodium. For now I believe this is aggravated by nausea and vomiting -Improving #Hypertension-continue home meds on parameters -Stopping amlodipine as SBP dropped from 130 to 100 #Chronic back/right leg pain-continue Ultram and baclofen as previously #Prophylaxis-DVT with SCDs and enoxaparin, GI with famotidine #Disposition- full code from home Glynn Contreras MD August 25, 2016 15:20
[2016-08-25 15:49] VITALS: BP 130/78; PULSE 86; RESP 16; O2SAT 100
[2016-08-25 20:55] VITALS: BP 152/82; PULSE 90; RESP 20; O2SAT 96
[2016-08-26] VITALS (11 sets, daily range): BP systolic 127–183; BP diastolic 64–118; PULSE 70–137; RESP 16–20; O2SAT 98–100
[2016-08-26] MEDS: 0.9% Sodium Chloride 1,000 ML IV SCH ×3 (00:21→20:34)
[2016-08-26] MEDS: HYDROcodone-APAP 5-325 mg Tablet PO PRN ×3 (05:30→15:27)
--- NOTE | 2016-08-26 05:34 | NUR ---
ORTHO BP Pt awoke at 0500 needing to use BR, took this time to orthostatic VS. Laying down immediately after pt woke up, BP is 179/93 HR. Sitting up BP is 183/118 and HR 137. To stand pt needed assistance, did not verbally say she was dizzy, though needed to hold onto this RN and vitals machine to keep steady. Standing BP was 127/91 HR 137. Pt able to walk to BR easily with minimal assistance. Addendum: 08/26/16 at 0550 by SONDRA GARCIA RN Recheck BP is 130/79 and HR is 90 sitting up in bed
[2016-08-26] MEDS: Famotidine Inj 20 MG in IV Premix 1 EACH IV SCH ×2 (07:42→20:34)
--- NOTE | 2016-08-26 08:00 | NUR ---
SI This pt was upset that she was told during the night to try not to move her left hand because her IV would occlude. Pt crying, saying that she was depressed and wanted to kill herself. Pt says that she would take a handful of medications she has at home and kill herself. Says that she has a gun at home but does not know where it is. Pt expressed that she wished to be discharged, because being here is "doing weird things" to her. When pt was informed that this would not be acceptable since she planned on killing herself, pt expressed that she did not remember saying that. Pt verbally contracts for safety in the hospital. Currently scores at 19 on the scale. [employer] Spr[employer] notified, hospitalist notified, and pt placed on Q15 min checks. Will attempt to place pt on a different floor with more staffing. Will continue to monitor closely.
--- NOTE | 2016-08-26 10:11 | NUR ---
Evaluation completed. Please go to "Notes" then click on "Assessments and Notes" (bottom left corner of screen). Then select appropriate discipline tab on top of screen.
--- NOTE | 2016-08-26 14:48 | PCM.PNMED ---
Subjective Date of Service August 26, 2016 Subjective Patient was seen and examined at bedside today. Patient denies any chest pain, shortness of breath, nausea, vomiting, diarrhea. Patient is very tearful today and seemed a bit histrionic. She had mentioned overnight to the nurse that she wanted to kill herself and she went home that that is what she would do. When bringing this up this morning and front of her she did not want to talk about it and became very tearful stating that she did not want her to know what she was thinking because she did not want to "upset him". Eventually this was brought up as she said it was okay to tell him and he has been already knew of her suicidal ideations. The patient then started talking about her father and "mixing up her father and her " and later she just started crying and stating "I just want my daddy" which she repeated multiple times. The patient still has suicidal ideations and she has admitted that when she goes home that she will kill herself by taking a bunch of pills. After further discussion with the he states that the patient was on 20 mg of fluoxetine but that was recently increased to 40 mg daily and since this increased the patient has not been herself and she has been very tearful and very histrionic. Unsure if the patient has a diagnosis of histrionic personality disorder however she does have a history of both depression and anxiety. Exam Vital Signs Vital Sign - Last Date Time Temp Pulse Resp B/P Pulse Ox O2 Delivery O2 Flow Rate FiO2 08/26/16 10:52 80 16 166/84 100 Room Air 08/26/16 05:11 36.6 Intake and Output 08/25/16 08/25/16 08/26/16 Cumulative From/Thru 15:00 23:00 07:00 08/24/16 04:09 - 08/26/16 06:11 Intake Total 2518 ml 1729 ml 7434 ml Output Total 1700 ml 1700 ml 4800 ml Balance 818 ml 29 ml 2634 ml Intake Oral 1320 ml 480 ml 2200 ml IV Total 1198 ml 1249 ml 5234 ml Output Urine Total 1700 ml 1700 ml 4800 ml # Voids 2 2 Exam Physical Exam: GEN: Patient was awake, alert, responding appropriately to questions HEENT: Pupils equal round and reactive to light, extraocular eye muscles intact , Neck soft supple, trachea midline, nomocephalic/atraumatic CV: +S1/S2, regular rate and rhythm, positive systolic murmur auscultated (the patient states that this is unknown systolic murmur) Respiratory: CTAB, no wheezes, rales, rhonchi GI: +bowel sounds x4, soft, compressible, nontender to palpation EXT: no clubbing, cyanosis, edema Neuro: Cranial nerves II-XII grossly intact Psych: mood and affect were appropriate IVs and Medications Medications Reviewed: Medications were reviewed in detail Lab and Diagnostics Result Diagram: 08/25/16 0540 08/26/16 0610 Assessment & Plan 66-year-old female presents with hyponatremia and a history of nausea and vomiting currently on salt tabs. Dizziness/orthostasis -Discontinue IV fluids -Follow up random cortisol level in the morning -Continue Florinef -Continue support hose Nausea and vomiting -Resolved continue to monitor Hyponatremia (resolved) -Resolved this was most likely aggravated by nausea and vomiting -Continue to monitor -There was thought that the patient's hyponatremia was exacerbated by Ultram/ fluoxetine as SSRIs can exacerbate hyponatremia. Discontinuation of fluoxetine abruptly can potentially exacerbate medical problems as well as the patient's psychosis. Patient has been restarted on fluoxetine however at a lower dose, back to her original dose of 20 mg daily. Hypertension -The patient's blood pressure has been significantly high as well as her pulse which actually may be contributing to the patient's dizziness -We will start patient on low-dose metoprolol 12.5 mg is controlling the patient 's blood pressure and pulse may help with her orthostasis Chronic back/right leg pain -Continue baclofen -Amitriptyline has been increased to 50 mg by mouth daily at bedtime -Continue tramadol Depression -Restart fluoxetine at a lower dose of 20 mg by mouth daily -Continue to monitor -Consult psych (Dr. Curiel) DVT prophylaxis: SCDs and Lovenox GI prophylaxis: Famotidine CODE STATUS: Full code Disposition: The patient's hyponatremia has resolved and some of her home medications have been restarted. However her orthostasis is still evident and needs to be worked up further. The patient also has suicidal ideations. At this time due to the patient's histrionic behavior and suicidal ideations with a plan I have consulted psych for further medical management and possible inpatient psych workup. The patient does remain medically complex and at high risk for complications. The patient was supposed to discharge today however with her recent suicidal ideations at this time she does not seem stable for discharge and should have a formal psych evaluation. Louise Osborne DO August 26, 2016 14:48
[2016-08-27] VITALS (7 sets, daily range): BP systolic 102–182; BP diastolic 67–110; PULSE 70–116; RESP 14–20; O2SAT 97–100
[2016-08-27] MEDS: HYDROcodone-APAP 5-325 mg Tablet PO PRN ×5 (00:25→20:46)
--- NOTE | 2016-08-27 03:55 | NUR ---
Insomnia Pt requests something to help her sleep since she has been up all night. James lazaro MD and awaiting response. Care ongoing.
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
[2016-08-27] MEDS: 0.9% Sodium Chloride 1,000 ML IV SCH ×2 (07:22→16:33)
[2016-08-27 08:25] LABS: Mean Corpuscular Hemoglobin 29.5 pg (27.0-35.0); Mean Corpuscular Volume 86.1 fL (81-100)
--- NOTE | 2016-08-27 13:09 | NUR ---
DISCHARGED FROM PT AT THIS TIME Pt. able to mobilize safely without AD and is low falls risk. Pt. is discharged from skilled PT at this time. NSG to cont. to ambulate with patient as needed daily.
--- NOTE | 2016-08-27 14:28 | PCM.PNMED ---
Subjective Date of Service August 27, 2016 Subjective Patient was seen and examined today. The patient seems more pleasant today and not at volatile. The patient was able to respond appropriately to questions with no crying or any of the hysteria that she had yesterday the patient seems more cooperative with staff as well. Exam Vital Signs Vital Sign - Last Date Time Temp Pulse Resp B/P Pulse Ox O2 Delivery O2 Flow Rate FiO2 08/27/16 11:59 Room Air 08/27/16 10:56 84 14 165/110 99 08/27/16 07:34 36.6 Intake and Output 08/26/16 08/26/16 08/27/16 Cumulative From/Thru 15:00 23:00 07:00 08/24/16 04:09 - 08/27/16 05:50 Intake Total 2419 ml 3631 ml 51404 ml Output Total 2500 ml 2475 ml 9775 ml Balance -81 ml 1156 ml 3709 ml Intake Oral 2080 ml 2800 ml 7080 ml IV Total 339 ml 831 ml 6404 ml Output Urine Total 2500 ml 2475 ml 9775 ml # Voids 2 # Bowel Movements 1 1 Exam Physical Exam: GEN: Patient was awake, alert, responding appropriately to questions HEENT: Pupils equal round and reactive to light, extraocular eye muscles intact , Neck soft supple, trachea midline, nomocephalic/atraumatic CV: +S1/S2, regular rate and rhythm, no murmurs auscultated Respiratory: CTAB, no wheezes, rales, rhonchi GI: +bowel sounds x4, soft, compressible, nontender to palpation EXT: no clubbing, cyanosis, edema Neuro: Cranial nerves II-XII grossly intact Psych: mood and affect were appropriate IVs and Medications Medications Reviewed: Medications were reviewed in detail Lab and Diagnostics Result Diagram: 08/27/1681908/27/16819 Assessment & Plan 66-year-old female presents with hyponatremia and a history of nausea and vomiting currently on salt tabs. Dizziness/orthostasis (resolved) -Discontinue IV fluids -Random cortisol level pending -Continue Florinef -Continue support hose Nausea and vomiting -Resolved continue to monitor Hyponatremia (resolving) -Most likely aggravated by nausea and vomiting -Continue to monitor -There was thought that the patient's hyponatremia was exacerbated by Ultram/ fluoxetine as SSRIs can exacerbate hyponatremia. After discussion with psych ( Dr. Galaviz) he feels that the fluoxetine could potentially be adding to the patient's hyponatremia and this should be stopped. Hypertension -The patient's blood pressure has been significantly high as well as her pulse which actually may be contributing to the patient's dizziness -We will start patient on low-dose metoprolol 12.5 mg is controlling the patient 's blood pressure and pulse may help with her orthostasis -Restart patient on amlodipine start with 5 mg we will titrate up as medically indicated back to patient's home dose Chronic back/right leg pain -Continue baclofen -Amitriptyline has been increased to 50 mg by mouth daily at bedtime -Continue tramadol Depression -Discontinue fluoxetine -Continue to monitor -Consult psych (Dr. Galaviz) DVT prophylaxis: SCDs and Lovenox GI prophylaxis: Famotidine CODE STATUS: Full code Disposition: The patient's home dose of fluoxetine has been discontinued. Psych is been consulted to see the patient and stated they would be by to see her today. The patient seems to be in a better frame of mind compared to yesterday and is currently not expressing any suicidal ideations to me however she did express some earlier this morning to the nurse. We will continue to monitor the patient for hyponatremia and manage her blood pressure. At this time the patient is denying any orthostasis. VTE Mechanical Devices: Venous Foot Pump Louise Osborne DO August 27, 2016 14:28
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
[2016-08-28] MEDS: 0.9% Sodium Chloride 1,000 ML IV SCH ×3 (03:22→22:30)
[2016-08-28] MEDS: HYDROcodone-APAP 5-325 mg Tablet PO PRN ×5 (04:08→20:38)
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
[2016-08-28 06:01] VITALS: BP 154/83; PULSE 76; RESP 18; O2SAT 98
[2016-08-28 07:15] LABS: Mean Corpuscular Hemoglobin 29.4 pg (27.0-35.0); Mean Corpuscular Volume 86.3 fL (81-100)
[2016-08-28 08:00] VITALS: BP 136/71; PULSE 71; RESP 20; O2SAT 100
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
--- NOTE | 2016-08-28 11:00 | NUR ---
Agitation/pain 1100 at bedside trying to communicate with her, wouldn't stop talking to listen to him who was trying to chose his words. "we need marriage counseling, will you go?" He left and stated, if you want, he will return later this afternoon. After he left she was extremely upset. placed her water abruptly on the table, spilling it. then stated "once I leave here I am going to kill myself. I have some pills I am going to take". continued rant for several minutes, then said "i am done with my rant". No further comments regarding this. 1350 pt currently sleeping 30 minutes after taking seroquel c/o feeling dizzy. laid down, was finally able to rest.
--- NOTE | 2016-08-28 13:35 | NUR ---
Social Work-continued d/c planning: Data:EMR Reviewed. Pt is on day 4 of hospitalization for hyponatremia per H&P. Pt is not medically stable anticipate 1-2 more days. Pt resides at home with her where she remains independent with ADLS. PT has seen pt and cleared pt for home no needs. Psychiatry has been seeing pt and will continue to follow while hospitalized. Review psychiatry notes for recommendations. SW requested by Psychiatrist to check RX for pt for Cymbalta. SW found out pt's pharmacy is [facility] in [place]. SW called [facility] and they informed SW they cannot check copay. SW called [facility] and faxed RX over. Alana called back and informed SW cost of medication is $3.08. SW will need to call [facility] back to have them fill this if needed. CARMINE called [facility] RN who will update Psychiatrist on cost. SW will continue to follow. Assessment:Pt who is independent at baseline. Plan:SW to follow for psychiatry recommendations for discharge. Pt resides at home with her . SW will continue to follow. AMISH Cui
--- NOTE | 2016-08-28 14:48 | NUR ---
Nausea pt up in chair for lunch. pt reports swallowed a lot of air yesterday d/t her anxiety. belching rx given for nausea pain in knee continues to have spasms, rx given per order.
[2016-08-28] MEDS: DULoxetine 30 mg DR Capsule PO SCH (15:18)
--- NOTE | 2016-08-28 16:30 | PCM.PNMED ---
Subjective Date of Service August 28, 2016 Subjective Patient was seen and examined today at bedside. The patient still has some suicidal ideations, patient still complains of left knee pain, patient denies any chest pain or shortness of breath. Overnight: The patient had some homicidal ideations towards nurses last night stating that she was going to kill all of them on the floor and threatening to get all the staff fired because nobody seems to pay attention to her. However last night she did tell the nurse that she was going to have a psychotic episode and that he should leave her well and otherwise she was going to kill him the nurse left the room and just continue to monitor the patient from afar to ensure that she did not hurt herself however later the patient complained that nobody cared about her and nobody was willing to help her during her psychotic episode even though she asked everybody to leave for safety purposes. Exam Vital Signs Vital Sign - Last Date Time Temp Pulse Resp B/P Pulse Ox O2 Delivery O2 Flow Rate FiO2 08/28/16 08:00 36.4 71 20 136/71 100 Room Air Intake and Output 08/27/16 08/27/16 08/28/16 Cumulative From/Thru 15:00 23:00 07:00 08/24/16 04:09 - 08/28/16 06:44 Intake Total 900 ml 400 ml 48757 ml Output Total 1600 ml 885 ml 24671 ml Balance -700 ml -485 ml 2524 ml Intake Oral 800 ml 400 ml 8280 ml IV Total 100 ml 6504 ml Output Urine Total 1600 ml 885 ml 10572 ml # Voids 2 # Bowel Movements 0 1 Exam Physical Exam: GEN: Patient was awake, alert, walking around, very tangential thought process HEENT: Pupils equal round and reactive to light, extraocular eye muscles intact , Neck soft supple, trachea midline, nomocephalic/atraumatic CV: +S1/S2, regular rate and rhythm, no murmurs auscultated Respiratory: CTAB, no wheezes, rales, rhonchi GI: +bowel sounds x4, soft, compressible, nontender to palpation EXT: no clubbing, cyanosis, edema Neuro: Cranial nerves II-XII grossly intact Psych: mood and affect were agitated, patient had a short speech, patient was very histrionic and was screaming and crying for no apparent logical reasons. IVs and Medications Medications Reviewed: Medications were reviewed in detail Lab and Diagnostics Result Diagram: 08/28/1635 08/28/1635 Assessment & Plan 66-year-old female presents with hyponatremia and a history of nausea and vomiting currently on salt tabs. Dizziness/orthostasis (resolved) -Discontinue IV fluids -Random cortisol level 17.5 (within normal limits) -Continue Florinef -Continue support hose Nausea and vomiting -Resolved continue to monitor Hyponatremia (resolving) -Most likely aggravated by nausea and vomiting -Continue to monitor -There was thought that the patient's hyponatremia was exacerbated by Ultram/ fluoxetine as SSRIs can exacerbate hyponatremia. After discussion with psych ( Dr. Galaviz) he feels that the fluoxetine could potentially be adding to the patient's hyponatremia and this should be stopped. -Restart IV fluids today -Continue to monitor Hypertension -The patient's blood pressure has been significantly high as well as her pulse which actually may be contributing to the patient's dizziness -Discontinue metoprolol 12.5 mg twice a day -Start propanolol 40 mg twice a day (hopefully this will also help with the patient's agitation) -Increase amlodipine to 10 mg daily Chronic back/right leg pain -Continue baclofen -Amitriptyline has been increased to 50 mg by mouth daily at bedtime -Continue tramadol -Start Mobic 15 mg daily -Cymbalta was also started today Depression/psychosis -Discontinue fluoxetine -Patient's Seroquel was increased to 50 mg twice a day -Patient started on Cymbalta -Continue to monitor -Consult psych (Dr. Galaviz) DVT prophylaxis: SCDs and Lovenox GI prophylaxis: Famotidine CODE STATUS: Full code Disposition: The case was discussed with Dr. Galaviz who agrees that the patient is having some form of a psychotic episode. At this time multiple medications have been started and we will continue to monitor the patient for effectiveness of the medications. At this time we are working on the patient's hyponatremia in getting this stable. Once this is stable and if the patient psychosis is not completed she may need to be transferred over into the psych facility for further management. Much discussion was held with the patient's who also feels that the patient is not at her baseline mentation and feels that she is unable to be reasoned with at this time whereas previously he was able to at least reason with her. VTE Mechanical Devices: Venous Foot Pump Louise Osborne DO August 28, 2016 16:30
[2016-08-28 16:40] VITALS: BP 137/82; PULSE 68; RESP 20; O2SAT 100
--- NOTE | 2016-08-28 19:50 | NUR ---
pain/anxiety/mobility pt c/o on/off severe pain in right knee most of shift. Rx given per order with very minimal relief. at times would cry out loudly in pain and spastically shake for a brief moment with muscle spasm. 2-3 times in the shift in moment of extreme pain would verbally state: "when I get home I am going to kill myself. I have a bag of pills and I am going to take them all" In the afternoon heard this and stated will bring in bag of pills and have us dispose of them. Pt amb short distances in stone with episodes of extreme pain. did c/o feeling dizzy at times throughout shift.
[2016-08-28 20:35] VITALS: BP 137/79; PULSE 79; RESP 20; O2SAT 98
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
[2016-08-29] MEDS: HYDROcodone-APAP 5-325 mg Tablet PO PRN ×5 (04:37→22:59)
--- NOTE | 2016-08-29 04:44 | NUR ---
SI/Pain At the starting of the shift, UA/MANUAL ARTS TEACHER state that pt was saying "she will kill herself." this RN didn't hear about harming self/or others during this shift. Spouse concerned about pt SI during the day shift" she state she has medication at home. she insist she will go home and take those medications to kill herself." spouse asked this RN to bring home medication to keep it here at the hospital. This RN told spouse he can bring it, and we can send it to the pharmacy. spouse said he will bring it today (08/29/16). pt slept for about 5 hrs. pt yelled at times when she is in pain. pt has been pacing ( high risk for fall with IV pole), self talk, call by the call light q 5-10 minutes when she is awake. sitter at the bed side since 2309. over all pt has been more calm than yesterday night. pt c/o 10-12/ 10 lower back and right knee pain. administered 2 tab. [place] which was effective. will continue to monitor.
[2016-08-29 07:00] VITALS: BP 158/105; PULSE 79; RESP 22; O2SAT 99
[2016-08-29] MEDS: DULoxetine 30 mg DR Capsule PO SCH (08:34)
[2016-08-29 08:38] LABS: Mean Corpuscular Hemoglobin 29.8 pg (27.0-35.0); Mean Corpuscular Volume 86.3 fL (81-100)
[2016-08-29] MEDS: 0.9% Sodium Chloride 1,000 ML IV SCH ×2 (08:39→14:27)
--- NOTE | 2016-08-29 08:40 | NUR ---
Mentation Pt is non-stop talking to self about variety of subjects. Psych MD called and updated on how night went. has 1:1 sitter at bedside.
[2016-08-29] MEDS: Alum-Mag Hydrox-Simeth 30 mL Suspension PO PRN (08:46)
[2016-08-29 09:12] LABS: Magnesium 1.9 mg/dL (1.6-2.6)
--- NOTE | 2016-08-29 12:48 | PCM.PNMED ---
Subjective Date of Service August 29, 2016 Subjective Patient was seen and examined at bedside today. Patient denies any chest pain, shortness of breath, nausea, vomiting, diarrhea. The patient is still very dramatic with pressured speech however seems to be more calm now that she has a one-on-one. Overnight events: Patient seemed to sleep much better overnight according to nursing staff. The patient was not as hostile towards nursing staff in the evening however she did complain of lower extremity pain but this seemed to resolve after a dose of [place]. Exam Vital Signs Vital Sign - Last Date Time Temp Pulse Resp B/P Pulse Ox O2 Delivery O2 Flow Rate FiO2 08/29/16 07:00 36.4 79 22 158/105 99 Room Air Intake and Output 08/28/16 08/28/16 08/29/16 Cumulative From/Thru 15:00 23:00 07:00 08/24/16 04:09 - 08/29/16 07:00 Intake Total 1503 ml 1916 ml 48459 ml Output Total 450 ml 2250 ml 46720 ml Balance 1053 ml -334 ml 3243 ml Intake Oral 1020 ml 600 ml 9900 ml IV Total 483 ml 1316 ml 8303 ml Output Urine Total 450 ml 2250 ml 46562 ml # Voids 3 5 # Bowel Movements 0 0 1 Exam Physical Exam: GEN: Patient was awake, alert, no acute distress HEENT: Pupils equal round and reactive to light, extraocular eye muscles intact , Neck soft supple, trachea midline, nomocephalic/atraumatic CV: +S1/S2, regular rate and rhythm, no murmurs auscultated Respiratory: CTAB, no wheezes, rales, rhonchi GI: +bowel sounds x4, soft, compressible, nontender to palpation EXT: no clubbing, cyanosis, edema Neuro: Cranial nerves II-XII grossly intact Psych: mood and affect were anxious with pressured speech IVs and Medications Medications Reviewed: Medications were reviewed in detail Lab and Diagnostics Result Diagram: 08/29/1682008/29/16820 Assessment & Plan 66-year-old female presents with hyponatremia and a history of nausea and vomiting currently on salt tabs. Dizziness/orthostasis (resolved) -Random cortisol level 17.5 (within normal limits) -Discontinue Florinef - Patient not tolerating support hose will discontinue for now Nausea and vomiting -Resolved continue to monitor Hyponatremia (resolving) -Most likely aggravated by nausea and vomiting -Continue to monitor -There was thought that the patient's hyponatremia was exacerbated by Ultram/ fluoxetine as SSRIs can exacerbate hyponatremia. After discussion with psych ( Dr. Galaviz) he feels that the fluoxetine could potentially be adding to the patient's hyponatremia and this has been stopped. -Continue IV fluids. Normal saline running at 100 mL an hour -1 L normal saline bolus -Continue to monitor -Water restriction to 2.5 L daily Hypertension -The patient's blood pressure has been significantly high as well as her pulse which actually may be contributing to the patient's dizziness -Discontinue metoprolol 12.5 mg twice a day (08/27/16) -Increase propanolol to 60mg twice a day (hopefully this will also help with the patient's agitation however we will continue to monitor the patient and she has had some reports of orthostasis recently which has now resolved but should be monitored) -Continue amlodipine 10 mg daily Chronic back/right leg pain -Continue baclofen -Continue Amitriptyline 50 mg by mouth daily at bedtime -Continue tramadol -Start Mobic 15 mg daily -Cymbalta 30mg (08/28/16) Depression/psychosis -Discontinue fluoxetine -Patient's Seroquel was increased to 50 mg twice a day (08/28/2016) -Patient started on Cymbalta (08/28/2016) -Continue to monitor -Consult psych (Dr. Galaviz) DVT prophylaxis: SCDs and Lovenox GI prophylaxis: Famotidine CODE STATUS: Full code Disposition: The patient's brought in a list of the patient's medications. She has been on Seroquel previously and states that it did not help however she was not on as high doses she is on here currently. The current dose seems to have helped some with her psychotic episodes and she is now more manageable. The patient was also on Cymbalta however on one of the prescription bottles and states that she stopped taking Cymbalta because she had increased thirst. Will call the to find out if the patient's constant need to drink lots of water started about a month ago which is when she was prescribed the Cymbalta. If this is the case this is the reason for the patient's hyponatremia and she is drinking too much. At this time the patient is still having a significant psychotic episode and once she is medically stable she will be transferred to the psychiatric unit for further management. VTE Mechanical Devices: Venous Foot Pump Resuscitation Status: CPR: Attempt Resuscitation Louise Osborne DO August 29, 2016 12:48
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
[2016-08-29 15:25] VITALS: BP 99/54; PULSE 67; RESP 20; O2SAT 100
[2016-08-29 15:50] VITALS: BP 107/64
[2016-08-29] MEDS ORDERED: Mineral Oil-Petroltum 120 Gm Cream TOPICAL PRN (16:30)
[2016-08-29 16:55] VITALS: BP 101/60; PULSE 70
--- NOTE | 2016-08-29 18:00 | NUR ---
Agitation Pt hand wrapped for shower. Dinner came and she wanted to eat food warm. Became extremely agitated, shaking, stating "leave, leave you are scaring me, you are not my mom". Able to talk to her, removed covering for shower. Stated I am not hungry anymore I am going to take a shower Able to cover arm again. 0 Upon entry to room to introduce next nurse pt became upset stating leave the room, re-orientated to my name and she settled down right away. at bedside.
[2016-08-29 19:55] VITALS: BP 146/78; PULSE 75; RESP 20; O2SAT 100
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
[2016-08-30] MEDS: 0.9% Sodium Chloride 1,000 ML IV SCH ×2 (00:20→10:09)
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
[2016-08-30 06:01] VITALS: BP 123/77; PULSE 67; RESP 20; O2SAT 98
[2016-08-30] MEDS: HYDROcodone-APAP 5-325 mg Tablet PO PRN ×4 (06:10→22:33)
[2016-08-30 06:12] LABS: Mean Corpuscular Hemoglobin 29.1 pg (27.0-35.0)
[2016-08-30 08:27] VITALS: BP 147/78; PULSE 60; RESP 16; O2SAT 100
[2016-08-30] MEDS: DULoxetine 30 mg DR Capsule PO SCH (08:56)
[2016-08-30 12:24] VITALS: BP 127/66; PULSE 65; RESP 20; O2SAT 100
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
[2016-08-30 16:35] VITALS: BP 104/68; PULSE 80; RESP 16; O2SAT 95
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
[2016-08-30 19:58] VITALS: BP 135/84; PULSE 68; RESP 20; O2SAT 98
--- NOTE | 2016-08-30 21:02 | PCM.PNMED ---
Subjective Date of Service August 30, 2016 Subjective During my visit with the patient she was calm and had no specific complaints. However, after I left approximately an hour later she had some sort of histrionic episode. Exam Vital Signs Vital Sign - Last Date Time Temp Pulse Resp B/P Pulse Ox O2 Delivery O2 Flow Rate FiO2 08/30/16 16:35 36.7 80 16 104/68 95 Room Air Intake and Output 08/29/16 08/29/16 08/30/16 Cumulative From/Thru 15:00 23:00 07:00 08/24/16 04:09 - 08/30/16 06:03 Intake Total 3054 ml 1653 ml 16881 ml Output Total 1650 ml 1900 ml 81352 ml Balance 1404 ml -247 ml 4400 ml Intake Oral 1620 ml 600 ml 80285 ml IV Total 1434 ml 1053 ml 00504 ml Output Urine Total 1650 ml 1900 ml 76208 ml # Voids 5 10 # Bowel Movements 0 1 Exam General: During my visit patient was calm and in no distress. HEENT: Head is atraumatic and normocephalic. Eyes: Pupils are equally round and reactive to light and accommodation. Extraocular muscles are intact. Sclera are white, anicteric. Subconjunctival mucosa is pink. Ears and nose are unremarkable. Oropharynx: There is no mucosal lesions, there is no thrush, there is no pharyngitis. Neck: Is supple, there are no nodes, or masses or tenderness. Chest: Is clear to auscultation and percussion. There are no rales, rhonchi, wheezes or rubs. Heart: Rate, rhythm is regular. There is no murmur, rub or gallop. Abdomen: Good bowel sounds are present. Abdomen is soft, nontender, no organomegaly or masses were appreciated. Extremities: Are symmetrical and well perfused. There is no edema, there is no cellulitis, no rash. Neurologic: There are no focal neurological deficits. Cranial nerves II through XII are intact. There are no sensory or motor deficits. Psychiatric: Patients mood is calm and shows no sign of agitation during my visit. However, shortly after my visit she became histrionic Genital: Deferred Rectal: Deferred Lab and Diagnostics Result Diagram: 08/30/16 0555 08/30/16 0555 X-Rays, CTs and MRIs PROCEDURE: CT ABDOMEN AND PELVIS WITH CONTRAST ([id number]) INDICATIONS: gen abd pain TECHNIQUE: After the administration of intravenous contrast, 5 mm thick sections acquired from the diaphragm to the symphysis. 5 mm coronal and sagittal reformats were acquired. For radiation dose reduction, the following was used: automated exposure control, adjustment of mA and/or kV according to patient size. COMPARISON: [facility], CT, CT ABD PELVIS W CON, 01/22/2016, 23:50. FINDINGS: ABDOMEN: Lung bases: Lung bases are clear. Heart size is normal. Solid organs: Multiple stable hypodensities throughout the liver consistent with benign hepatic cysts. Otherwise the liver is normal. The spleen is normal in size and enhancement. Gallbladder is surgically absent. Biliary system is non dilated. Pancreas enhances normally. No adrenal nodules. Bilateral prominent collecting systems with mild right-sided ureterectasis. There is a 9 mm linear density adjacent to the dependent bladder wall (se 2 im 59). Uterus is present. Peritoneum and bowel: Bowel loops demonstrate normal wall thickness and caliber. No free fluid or air. Nodes and vessels: No retroperitoneal or mesenteric adenopathy by size criteria. Aorta and inferior vena cava are normal in size. Miscellaneous: No ventral hernias. PELVIS: Genitourinary: Bladder wall thickness is normal. Miscellaneous: No inguinal hernias or adenopathy. Bones: No suspicious bony lesions. No vertebral body compression fractures. IMPRESSION: 1. Right-sided hydronephrosis and ureterectasis may represents the sequelae of a radiographically occult tiny distal right ureteral calculus or a recently passed calculus. If patient's clinical symptoms continue recommend a CT urogram to evaluate for noncalcified obstructing lesion. 2. Linear metallic density adjacent to or less likely in the posterior wall of the bladder likely represents a tubal occlusion device. Please correlate with clinical history for placement of tubal occlusion devices. 3. There are no urgent discrepancy with the pulmonary report. Dictated by: Mainor Dyer M.D. on 08/24/2016 at 7:59 Approved by: Mainor Dyer M.D. on 08/24/2016 at 8:09 Assessment & Plan The patient is a 66-year-old female presents with hyponatremia and a history of nausea and vomiting currently on salt tabs. Dizziness/orthostasis (resolved) -Random cortisol level 17.5 (within normal limits) -We will discontinue Florinef - Patient not tolerating support hose will discontinue for now Nausea and vomiting -Resolved continue to monitor Hyponatremia (resolving) -Patient appears to have potomania -Most likely aggravated by nausea and vomiting -Continue to monitor -There was thought that the patient's hyponatremia was exacerbated by Ultram/ fluoxetine as SSRIs can exacerbate hyponatremia. After discussion with psych ( Dr. Galaviz) he feels that the fluoxetine could potentially be adding to the patient's hyponatremia and this has been stopped. -Continue IV fluids. Normal saline running at 100 mL an hour. We will decrease to 80 mL an hour. -1 L normal saline bolus was given. -Continue to monitor -We will continue water restriction to 2.5 L daily. Hypertension -The patient's blood pressure has been significantly high as well as her pulse which actually may be contributing to the patient's dizziness -We have discontinued metoprolol 12.5 mg twice a day (08/27/16) -We have increased propanolol to 60mg twice a day (hopefully this will also help with the patient's agitation, as recommended by psychiatry, however we will continue to monitor the patient and she has had some reports of orthostasis recently which has now resolved but should be monitored) -Continue amlodipine 10 mg daily. Chronic back/right leg pain -Continue baclofen -Amitriptyline has been switched to Cymbalta on 08/28/2016.. -Continue tramadol -We will continue Mobic 15 mg daily -We will continue Cymbalta 30mg (08/28/16) Depression/psychosis -Fluoxetine was discontinued -Patient's Seroquel was increased to 50 mg 3 times a day (08/29/2016) and we will continue -Patient was started on Cymbalta (08/28/2016) -Continue to monitor -Dr. Galaviz has been consulted for psychiatry and we greatly appreciate his time and expertise. We will follow his recommendations. Disposition: According to Dr. Beebe : "Patient not appropriate for voluntary psychiatric admission at this time. Patient requesting discharge and [facility] would not dispatch [facility]. If patient is scheduled for discharge and reports suicidal or homicidal ideation\\, would refer to [facility] for civil commitment assessment." Pain Evaluation: Adequate Pain Control GI Prophylaxis: H2 any VTE Prophylaxis: Sub-Q Enoxaparin VTE Mechanical Devices: Venous Foot Pump Resuscitation Status: CPR: Attempt Resuscitation Wilbert French MD August 30, 2016 21:02 the patient's hyponatremia and she is drinking too much. At this time the patient is still having a significant psychotic episode and once she is medically stable she will be transferred to the psychiatric unit for further management. Pain Evaluation: Adequate Pain Control GI Prophylaxis: Not indicated VTE Prophylaxis: Sub-Q Enoxaparin VTE Mechanical Devices: Venous Foot Pump Resuscitation Status: CPR: Attempt Resuscitation Wilbert French MD August 30, 2016 21:02
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
[2016-08-31] MEDS: 0.9% Sodium Chloride 1,000 ML IV SCH ×2 (03:41→17:12)
[2016-08-31] MEDS: HYDROcodone-APAP 5-325 mg Tablet PO PRN ×5 (03:41→23:29)
[2016-08-31 04:40] VITALS: BP 161/58; PULSE 87; RESP 22; O2SAT 97
[2016-08-31 06:49] LABS: BASOPHILS % (AUTO) 0.6 % (0-3); MONOCYTES % (AUTO) 7.4 % (4-12); Mean Corpuscular Hemoglobin 29.9 pg (27.0-35.0); Mean Corpuscular Volume 86.9 fL (81-100); NEUTROPHILS % (AUTO) 66.7 % (40-74); Platelet Count 464 bil/L (150-400)
[2016-08-31 07:19] LABS: Magnesium 2.1 mg/dL (1.6-2.6)
--- NOTE | 2016-08-31 08:00 | NUR ---
Mentation/agitation Pt very agitated this morning. Very restless, getting up and down. Pt talking to herself, very angry tone. Unable to redirect pt or engage in a conversation. On q15 minute checks for safety and UA sitting at bedside.
[2016-08-31 08:11] VITALS: BP 150/77; PULSE 73; RESP 16; O2SAT 96
[2016-08-31] MEDS: DULoxetine 30 mg DR Capsule PO SCH (08:15)
--- NOTE | 2016-08-31 08:48 | NUR ---
Scheduled hospital follow up appointment with Karli Bruno, this is on September 05 check in at 1110AM for 1120AM appointment. Updated [employer]
[2016-08-31 12:02] VITALS: BP 106/63; PULSE 70; RESP 20; O2SAT 98
--- NOTE | 2016-08-31 14:11 | PCM.PNMED ---
Subjective Date of Service August 31, 2016 Subjective Patient continues to have altered mental status with no specific suicidal ideation at this time. Patient has had psychiatric medications titrated including Seroquel and the Loxitane. Amitriptyline has been discontinued. Patient seen at bedside and amenable to examination but hard to direct, tangential. Exam Vital Signs Vital Sign - Last Date Time Temp Pulse Resp B/P Pulse Ox O2 Delivery O2 Flow Rate FiO2 08/31/16 12:02 36.9 70 20 106/63 98 Room Air Intake and Output 08/30/16 08/30/16 08/31/16 Cumulative From/Thru 15:00 23:00 07:00 08/24/16 04:09 - 08/31/16 06:25 Intake Total 1487 ml 872 ml 71739 ml Output Total 1550 ml 1850 ml 52836 ml Balance -63 ml -978 ml 3359 ml Intake Oral 505 ml 240 ml 16056 ml IV Total 982 ml 632 ml 22307 ml Output Urine Total 1550 ml 1850 ml 13876 ml # Voids 10 # Bowel Movements 1 Exam General: During my visit patient was calm but sitting up in bed speaking tangentially, confused HEENT: Head is atraumatic and normocephalic. Eyes: Pupils are equally round and reactive to light and accommodation. Extraocular muscles are intact. Sclera are white, anicteric. Subconjunctival mucosa is pink. Ears and nose are unremarkable. Oropharynx: There is no mucosal lesions, there is no thrush, there is no pharyngitis. Neck: Is supple, there are no nodes, or masses or tenderness. Chest: Is clear to auscultation and percussion. There are no rales, rhonchi, wheezes or rubs. Heart: Rate, rhythm is regular. There is no murmur, rub or gallop. Abdomen: Good bowel sounds are present. Abdomen is soft, nontender, no organomegaly or masses were appreciated. Extremities: Are symmetrical and well perfused. There is no edema, there is no cellulitis, no rash. Neurologic: There are no focal neurological deficits. Cranial nerves II through XII are intact. There are no sensory or motor deficits. Psychiatric: Patients mood is calm and shows no sign of agitation during my visit. However, shortly after my visit she became histrionic IVs and Medications Medications Reviewed: Medications were reviewed in detail Lab and Diagnostics Result Diagram: 08/31/16 0615 08/31/16 0615 X-Rays, CTs and MRIs PROCEDURE: CT ABDOMEN AND PELVIS WITH CONTRAST ([id number]) INDICATIONS: gen abd pain TECHNIQUE: After the administration of intravenous contrast, 5 mm thick sections acquired from the diaphragm to the symphysis. 5 mm coronal and sagittal reformats were acquired. For radiation dose reduction, the following was used: automated exposure control, adjustment of mA and/or kV according to patient size. COMPARISON: [facility], CT, CT ABD PELVIS W CON, 01/22/2016, 23:50. FINDINGS: ABDOMEN: Lung bases: Lung bases are clear. Heart size is normal. Solid organs: Multiple stable hypodensities throughout the liver consistent with benign hepatic cysts. Otherwise the liver is normal. The spleen is normal in size and enhancement. Gallbladder is surgically absent. Biliary system is non dilated. Pancreas enhances normally. No adrenal nodules. Bilateral prominent collecting systems with mild right-sided ureterectasis. There is a 9 mm linear density adjacent to the dependent bladder wall (se 2 im 59). Uterus is present. Peritoneum and bowel: Bowel loops demonstrate normal wall thickness and caliber. No free fluid or air. Nodes and vessels: No retroperitoneal or mesenteric adenopathy by size criteria. Aorta and inferior vena cava are normal in size. Miscellaneous: No ventral hernias. PELVIS: Genitourinary: Bladder wall thickness is normal. Miscellaneous: No inguinal hernias or adenopathy. Bones: No suspicious bony lesions. No vertebral body compression fractures. IMPRESSION: 1. Right-sided hydronephrosis and ureterectasis may represents the sequelae of a radiographically occult tiny distal right ureteral calculus or a recently passed calculus. If patient's clinical symptoms continue recommend a CT urogram to evaluate for noncalcified obstructing lesion. 2. Linear metallic density adjacent to or less likely in the posterior wall of the bladder likely represents a tubal occlusion device. Please correlate with clinical history for placement of tubal occlusion devices. 3. There are no urgent discrepancy with the pulmonary report. Dictated by: Mainor Dyer M.D. on 08/24/2016 at 7:59 Approved by: Mainor Dyer M.D. on 08/24/2016 at 8:09 Assessment & Plan The patient is a 66-year-old female presents with hyponatremia and a history of nausea and vomiting Dizziness/orthostasis (resolved) -Random cortisol level 17.5 (within normal limits) -We will discontinue Florinef - Patient not tolerating support hose will discontinue for now Nausea and vomiting -Resolved continue to monitor Hyponatremia (resolving), improved -Patient appears to have potomania -Most likely aggravated by nausea and vomiting -There was thought that the patient's hyponatremia was exacerbated by Ultram/ fluoxetine as SSRIs can exacerbate hyponatremia. After discussion with psych ( Dr. Galaviz) he feels that the fluoxetine could potentially be adding to the patient's hyponatremia and this has been stopped. -Continue IV fluids. Normal saline running at 100 mL an hour. We will decrease to 80 mL an hour. -1 L normal saline bolus was given. -We will continue water restriction to 2.5 L daily. Hypertension -The patient's blood pressure has been significantly high as well as her pulse which actually may be contributing to the patient's dizziness -We have discontinued metoprolol 12.5 mg twice a day (08/27/16) -We have increased propanolol to 60mg twice a day (hopefully this will also help with the patient's agitation, as recommended by psychiatry, however we will continue to monitor the patient and she has had some reports of orthostasis recently which has now resolved but should be monitored) -Continue amlodipine 10 mg daily. Chronic back/right leg pain -Continue baclofen -Amitriptyline has been switched to Cymbalta on 08/28/2016.. -Continue tramadol -We will continue Mobic 15 mg daily -We will continue Cymbalta 30mg (08/28/16) Depression/psychosis -Fluoxetine was discontinued -Sitter at bedside as needed, minimize narcotics if possible -Patient's Seroquel was increased to 50 mg 3 times a day (08/29/2016) and we will continue -Patient was started on Cymbalta (08/28/2016)and increase to 60 mg, amitriptyline was discontinued -Continue to monitor -Dr. Galaviz has been consulted for psychiatry and we greatly appreciate his time and expertise. Disposition: According to Dr. Beebe : "Patient not appropriate for voluntary psychiatric admission at this time. Patient requesting discharge and [facility] would not dispatch [facility]. If patient is scheduled for discharge and reports suicidal or homicidal ideation\\, would refer to [facility] for civil commitment assessment. Pain Evaluation: Adequate Pain Control GI Prophylaxis: H2 any VTE Prophylaxis: Sub-Q Enoxaparin VTE Mechanical Devices: Venous Foot Pump Resuscitation Status: CPR: Attempt Resuscitation Time spent 35 minutes spent with evaluation and management Reinaldo Holder DO August 31, 2016 14:11
--- NOTE | 2016-08-31 15:29 | NUR ---
[facility] signed
[2016-08-31 16:38] VITALS: BP 133/82; RESP 16; O2SAT 95
--- NOTE | 2016-08-31 18:15 | NUR ---
Hysterical/delusional episode Pt started to c/o knee pain and insisted on walking. Pt very hysterical and started to mar getting up. Pt crying and talking to herself in the hallway, calling out for her mother and saying "ducks go quack quack." Pt then said that she was going to fall and legs started to buckle slightly. Pt sat in chair and continued to have delusions. Escorted back to room in wheelchair. Pt then expressed that she was tired and wanted to sleep. Pt still crying in bed. Pt has not slept today and seems to be sleep deprived. Hospitalist paged to obtain sleep aid medication. Awaiting response.
[2016-08-31 20:11] VITALS: BP 114/61; PULSE 84; RESP 18; O2SAT 100
[2016-09-01] MEDS: HYDROcodone-APAP 5-325 mg Tablet PO PRN ×4 (03:14→20:39)
[2016-09-01 03:19] VITALS: BP 165/90; PULSE 88; RESP 16; O2SAT 100
[2016-09-01] MEDS: 0.9% Sodium Chloride 1,000 ML IV SCH ×2 (04:52→17:22)
[2016-09-01 05:04] VITALS: BP 161/75; PULSE 73; RESP 16; O2SAT 99
--- NOTE | 2016-09-01 05:58 | NUR ---
Mentation Assumed pt care at 1900,pt noted alert/oriented pt tracking for a moment then jump off to different topic,noted with intermittent episodes of anxiety, agitation, restlessness, hyperactivity, on start of shift pt verbalizing about harming herself stated "I'm gonna , I'm gonna stab myself" silverwares and other sharp objects taken out of room, pt redirectable, follows commands, c/o generalized pain even at slightest touch, managed with PRN APAP and Hardesty,pt redirected, distraction methods used, pt ambulated around unit stone to redirect energy, offered coloring materials at bedside, noted word salad, at 2300, pt calmed down, slept till 0300, at 0315 pt woke up with dry heaves given prn Zofran and given PRN Hardesty with signs of relief, also noted systolic Bp at 160's, given PRN Hydralazine at 0524, pt on/off crying, and yelling pt reports seeing "satan", describes it as "he's here with red fork", also verbalizes seeing "dinosaurs", pt continues with gentle IV NS Hydration and 2500ml fluid restriction, has sitter entire shift for safety.
[2016-09-01] MEDS: DULoxetine 30 mg DR Capsule PO SCH (07:31)
[2016-09-01 08:05] VITALS: BP 148/80; PULSE 67; RESP 16; O2SAT 100
--- NOTE | 2016-09-01 08:58 | NUR ---
Mentation- Patient sitting up on side of bed rocking her body back and forth, ranting numerous things. She stated, I am the devil"."I am no good, I am evil. I am going to kill myself. I am going to stab myself in the heart. I deserve to . I am the devil and I belong in hell." Attempted to calm and talk with patient, but she continued with her delusional words.
--- NOTE | 2016-09-01 09:57 | NUR ---
Mentation- "I want to stab myself in the chest. I want to stab myself in the heart. I want to stop my heart. I want to hurt them like they hurt me." I am tired, I want to go home. I am having another nightmare."
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
--- NOTE | 2016-09-01 13:20 | PCM.PNMED ---
Subjective Date of Service September 01, 2016 Subjective Seen today for Depression, Hypertension and Cognitive Disorder. She is bizarre and histrionic. She is demanding to get out of bed and walk around because her knees are hurting. No on is stopping her but she is crying and screaming about it. She is medicated with Vicodin for the knee pain. She is on Seroquel for the Mood Disorder. Exam Vital Signs Vital Sign - Last Date Time Temp Pulse Resp B/P Pulse Ox O2 Delivery O2 Flow Rate FiO2 09/01/16 08:05 36.8 67 16 148/80 100 Room Air Intake and Output 08/31/16 08/31/16 09/01/16 Cumulative From/Thru 15:00 23:00 07:00 08/24/16 04:09 - 09/01/16 05:07 Intake Total 2127 ml 910 ml 85268 ml Output Total 850 ml 475 ml 80096 ml Balance 1277 ml 435 ml 5071 ml Intake Oral 1517 ml 100 ml 64041 ml IV Total 610 ml 810 ml 43432 ml Output Urine Total 850 ml 475 ml 53955 ml # Voids 1 11 # Bowel Movements 3 2 6 Exam Heart: RRR without murmur Lungs: CTAB Ext: No ankle edema There is no knee swelling, redness or warmth. No signs of fracture or gout. IVs and Medications Medications Reviewed: Medications were reviewed in detail Lab and Diagnostics Result Diagram: 08/31/1661408/31/16614 X-Rays, CTs and MRIs PROCEDURE: CT ABDOMEN AND PELVIS WITH CONTRAST ([id number]) INDICATIONS: gen abd pain TECHNIQUE: After the administration of intravenous contrast, 5 mm thick sections acquired from the diaphragm to the symphysis. 5 mm coronal and sagittal reformats were acquired. For radiation dose reduction, the following was used: automated exposure control, adjustment of mA and/or kV according to patient size. COMPARISON: [facility], CT, CT ABD PELVIS W CON, 01/22/2016, 23:50. FINDINGS: ABDOMEN: Lung bases: Lung bases are clear. Heart size is normal. Solid organs: Multiple stable hypodensities throughout the liver consistent with benign hepatic cysts. Otherwise the liver is normal. The spleen is normal in size and enhancement. Gallbladder is surgically absent. Biliary system is non dilated. Pancreas enhances normally. No adrenal nodules. Bilateral prominent collecting systems with mild right-sided ureterectasis. There is a 9 mm linear density adjacent to the dependent bladder wall (se 2 im 59). Uterus is present. Peritoneum and bowel: Bowel loops demonstrate normal wall thickness and caliber. No free fluid or air. Nodes and vessels: No retroperitoneal or mesenteric adenopathy by size criteria. Aorta and inferior vena cava are normal in size. Miscellaneous: No ventral hernias. PELVIS: Genitourinary: Bladder wall thickness is normal. Miscellaneous: No inguinal hernias or adenopathy. Bones: No suspicious bony lesions. No vertebral body compression fractures. IMPRESSION: 1. Right-sided hydronephrosis and ureterectasis may represents the sequelae of a radiographically occult tiny distal right ureteral calculus or a recently passed calculus. If patient's clinical symptoms continue recommend a CT urogram to evaluate for noncalcified obstructing lesion. 2. Linear metallic density adjacent to or less likely in the posterior wall of the bladder likely represents a tubal occlusion device. Please correlate with clinical history for placement of tubal occlusion devices. 3. There are no urgent discrepancy with the pulmonary report. Dictated by: Mainor Dyer M.D. on 08/24/2016 at 7:59 Approved by: Mainor Dyer M.D. on 08/24/2016 at 8:09 Assessment & Plan The patient is a 66-year-old female presents with hyponatremia and a history of nausea and vomiting Dizziness/orthostasis (resolved) Nausea and vomiting -Resolved Hyponatremia (resolving), improved -Patient appears to have potomania -Most likely aggravated by nausea and vomiting -There was thought that the patient's hyponatremia was exacerbated by Ultram/ fluoxetine as SSRIs can exacerbate hyponatremia. After discussion with psych ( Dr. Galaviz) he feels that the fluoxetine could potentially be adding to the patient's hyponatremia and this has been stopped. -Resolved Hypertension -The patient's blood pressure has been significantly high as well as her pulse which actually may be contributing to the patient's dizziness -We have discontinued metoprolol 12.5 mg twice a day (08/27/16) -We have increased propanolol to 60mg twice a day (hopefully this will also help with the patient's agitation, as recommended by psychiatry, however we will continue to monitor the patient and she has had some reports of orthostasis recently which has now resolved but should be monitored) -Continue amlodipine 10 mg daily. Chronic back/right leg pain -Continue baclofen -Amitriptyline has been switched to Cymbalta on 08/28/2016.. -Continue tramadol, Vicodin and use Oxycodone when tylenol dosing is a potential problem. -We will continue Mobic 15 mg daily -We will continue Cymbalta 30mg (08/28/16) Depression/psychosis -Fluoxetine was discontinued -Sitter at bedside as needed, minimize narcotics if possible -Patient's Seroquel was increased to 50 mg 3 times a day (08/29/2016) and we will continue -Patient was started on Cymbalta (08/28/2016)and increase to 60 mg, amitriptyline was discontinued -Continue to monitor -Dr. Galaviz has been consulted for psychiatry and we greatly appreciate his time and expertise. Disposition: She has made suicidal and homicidal comments to [employer] and to Nursing Staff today. She is medically stabilized. [facility] facility. I agree with her being admitted to Psychiatry today. Artemio Barros MD GI Prophylaxis: H2 any VTE Prophylaxis: Sub-Q Enoxaparin VTE Mechanical Devices: Venous Foot Pump Resuscitation Status: CPR: Attempt Resuscitation Cosme Barros MD September 01, 2016 13:20
--- NOTE | 2016-09-01 13:32 | NUR ---
Behavioral health Notified pt accepted to Behavioral health unit. Able to transfer at 3:30 pm.
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
--- NOTE | 2016-09-01 15:12 | NUR ---
Social Work: Discharge Patient was evaluated by DMVASQUEZ, Jameson Arteaga and patient was accepted to [facility] unit. Patient, Patient spouse, Patient's hospitalist and Patient' s nurse are all aware. Patient is able to transfer at 3:30 pm. SW received a voicemail from patient counselor Dr. Marta Gordon confirming patient's appointment for 09/05/16. SW called patient's counselor and left a voicemail notifying her that the patient was accepted to [facility] unit and transferring on 09/01/16. SW will continue to follow and assist patient throughout stay. Pily Diaz LMSW, ACM
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
[2016-09-01] MEDS ORDERED: hydrOXYzine Pamoate 25 mg Capsule PO PRN (16:20)
[2016-09-01] MEDS ORDERED: Alum-Mag Hydrox-Simeth 30 mL Suspension PO PRN (16:20)
[2016-09-01] MEDS ORDERED: Magnesium Hydroxide 10 mL Oral Concentration PO PRN (16:20)
[2016-09-01] MEDS: LORazepam 1 mg Tablet PO PRN ×2 (17:00→22:27)
--- NOTE | 2016-09-01 21:35 | NUR ---
OBSERVATIONS Pt was admitted at 15:50. Pt is histrionic and complains of pain, anxiety, fear, and feelings of anger and frustration. Pt complains of not being able to sleep for "9 days" d/t noise. Pt had a positive visit with for a couple of hours. Pt watched television with peers in the evening. Maintained Q15 safety checks as directed.
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
--- NOTE | 2016-09-02 05:05 | NUR ---
Nursing Noc "I need to talk to a professional right-away?, I can't sleep, There is a devil with a pitch fork stabbing me in the side and telling me I'm going to hell. Pt calmed quickly with therapeutic communication and returned to bed. Pt noted to have broken sleep through the night totalling 5.5 hours, noted by Q15 minute safety checks. Continuing to monitor mood behavior and emotional state. CP
[2016-09-02] MEDS: 0.9% Sodium Chloride 1,000 ML IV SCH ×2 (05:52→17:26)
[2016-09-02] MEDS: HYDROcodone-APAP 5-325 mg Tablet PO PRN ×2 (08:14→15:35)
[2016-09-02] MEDS: Benzocaine-Menthol Lozenge 2/Pkg PO PRN ×3 (08:14→19:30)
[2016-09-02] MEDS: DULoxetine 30 mg DR Capsule PO SCH (08:14)
[2016-09-02] MEDS: LORazepam 1 mg Tablet PO PRN ×2 (09:40→17:28)
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
--- NOTE | 2016-09-02 12:05 | PCM.PNMED ---
Subjective Date of Service September 02, 2016 Subjective She is doing better today. She is having less racing of her thoughts and impulsivity. Less confusion. She denies any overt hallucinations. She is still having a lot of insomnia and does feel generally fatigued. No chest pain, cough or shortness of breath. No abdominal pain, nausea. No difficulty going to the bathroom. No overnight events Exam Vital Signs Vital Sign - Last Date Time Temp Pulse Resp B/P Pulse Ox O2 Delivery O2 Flow Rate FiO2 09/01/16 08:05 36.8 67 16 148/80 100 Room Air Intake and Output 09/01/16 09/01/16 09/02/16 Cumulative From/Thru 15:00 23:00 07:00 08/24/16 04:09 - 09/01/16 17:18 Intake Total 49559 ml Output Total 32694 ml Balance 5071 ml Intake Oral 67435 ml IV Total 01983 ml Output Urine Total 07728 ml # Voids 11 # Bowel Movements 6 Exam Alert and oriented -3, no distress. Fluent speech Anicteric sclera. Lungs are clear with normal rate and effort Heart is regular without murmur gallop or rub Abdomen soft nontender, flat Extremities are free of edema. Skin is free of rash or lesions. IVs and Medications Medications Reviewed: Medications were reviewed in detail Lab and Diagnostics Result Diagram: 08/31/1661408/31/16614 X-Rays, CTs and MRIs PROCEDURE: CT ABDOMEN AND PELVIS WITH CONTRAST (PNL-7102) INDICATIONS: gen abd pain TECHNIQUE: After the administration of intravenous contrast, 5 mm thick sections acquired from the diaphragm to the symphysis. 5 mm coronal and sagittal reformats were acquired. For radiation dose reduction, the following was used: automated exposure control, adjustment of mA and/or kV according to patient size. COMPARISON: [facility], CT, CT ABD PELVIS W CON, 01/22/2016, 23:50. FINDINGS: ABDOMEN: Lung bases: Lung bases are clear. Heart size is normal. Solid organs: Multiple stable hypodensities throughout the liver consistent with benign hepatic cysts. Otherwise the liver is normal. The spleen is normal in size and enhancement. Gallbladder is surgically absent. Biliary system is non dilated. Pancreas enhances normally. No adrenal nodules. Bilateral prominent collecting systems with mild right-sided ureterectasis. There is a 9 mm linear density adjacent to the dependent bladder wall (se 2 im 59). Uterus is present. Peritoneum and bowel: Bowel loops demonstrate normal wall thickness and caliber. No free fluid or air. Nodes and vessels: No retroperitoneal or mesenteric adenopathy by size criteria. Aorta and inferior vena cava are normal in size. Miscellaneous: No ventral hernias. PELVIS: Genitourinary: Bladder wall thickness is normal. Miscellaneous: No inguinal hernias or adenopathy. Bones: No suspicious bony lesions. No vertebral body compression fractures. IMPRESSION: 1. Right-sided hydronephrosis and ureterectasis may represents the sequelae of a radiographically occult tiny distal right ureteral calculus or a recently passed calculus. If patient's clinical symptoms continue recommend a CT urogram to evaluate for noncalcified obstructing lesion. 2. Linear metallic density adjacent to or less likely in the posterior wall of the bladder likely represents a tubal occlusion device. Please correlate with clinical history for placement of tubal occlusion devices. 3. There are no urgent discrepancy with the pulmonary report. Dictated by: Mainor Dyer M.D. on 08/24/2016 at 7:59 Approved by: Mainor Dyer M.D. on 08/24/2016 at 8:09 Assessment & Plan The patient is a 66-year-old female presents with hyponatremia and a history of nausea and vomiting #. Dizziness/orthostasis (resolved) #. Nausea and vomiting -Resolved #. Hyponatremia , improved -Patient appears to have potomania -Most likely aggravated by nausea and vomiting -There was thought that the patient's hyponatremia was exacerbated by Ultram/ fluoxetine as SSRIs can exacerbate hyponatremia. After discussion with psych ( Dr. Galaviz) he feels that the fluoxetine could potentially be adding to the patient's hyponatremia and this has been stopped. -Resolved, we will recheck her BMP tomorrow. September 03. #. Essential Hypertension, POA and stable. -The patient's blood pressure has been significantly high as well as her pulse which actually may be contributing to the patient's dizziness -We have discontinued metoprolol 12.5 mg twice a day (08/27/16) -We have increased propanolol to 60mg twice a day (hopefully this will also help with the patient's agitation, as recommended by psychiatry, however we will continue to monitor the patient and she has had some reports of orthostasis recently which has now resolved but should be monitored) -Continue amlodipine 10 mg daily. #. Chronic back/right leg pain, POA and stable. -Continue baclofen -Amitriptyline has been switched to Cymbalta on 08/28/2016.. -Continue tramadol, Vicodin and use Oxycodone when tylenol dosing is a potential problem. -We will continue Mobic 15 mg daily -We will continue Cymbalta 30mg (08/28/16) #. Depression/psychosis, POA is improving. -Fluoxetine was discontinued (possible component of SIADH.) -Sitter at bedside as needed, minimize narcotics if possible -Patient's Seroquel was increased to 50 mg 3 times a day (08/29/2016) and we will continue -Patient was started on Cymbalta (08/28/2016)and increase to 60 mg, amitriptyline was discontinued -Continue to monitor -Dr. Galaviz has been consulted for psychiatry and we greatly appreciate his time and expertise. Disposition: She has made suicidal and homicidal comments to Cushion Mat Maker and to Nursing Staff today. She is medically stabilized. She was detained by the [facility] as a grave danger to self and others and was admitted to the Psychiatric facility. GI Prophylaxis: H2 any VTE Prophylaxis: Sub-Q Enoxaparin VTE Mechanical Devices: Venous Foot Pump Resuscitation Status: CPR: Attempt Resuscitation Geoff Wing MD September 02, 2016 12:05
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
--- NOTE | 2016-09-02 16:09 | NUR ---
MHA Note D- Patient attended one structured group or social activity of three. She did not overtly attend to any ADLs this shift. Patient ate less than half of each of her meals this shift. A- Patient appeared despondent but present in the milieu. During breakfast she was eating very slowly and after about half an hour at a table, took just her plate and sat by the TV. She then picked at her breakfast for another half hour only to eat about 40%. Staff engaged patient at this time to which she stated that she didn't want to watch TV but needed to sit over there because she didn't know what was real anymore. She then began to stated that she believed that everyone there was her and that they were all going to hell and then would suffer and come back and do it again. She then stated that she had voices in her head and that's what was making everything so loud and she didn't know what was other people talking and what was going on in her head. She has been otherwise pleasant and easily engaged on a brief and superficial manner, but becomes quite disoriented and tangential (related to the aforementioned) when spoken to for long periods. She did not report any suicidal or homicidal ideation to this machine shorthand reporter. P- Continue current treatment plan.
[2016-09-02 18:17] VITALS: BP 142/76; PULSE 80; RESP 16
[2016-09-03] MEDS: Benzocaine-Menthol Lozenge 2/Pkg PO PRN ×3 (03:39→23:20)
[2016-09-03] MEDS: 0.9% Sodium Chloride 1,000 ML IV SCH ×2 (06:52→14:34)
--- NOTE | 2016-09-03 07:08 | NUR ---
Nursing Noc Pt sleeping all shift. Awoke briefly to receive scheduled medication and returned back to sleep. Improved sleep of over 9 hours. No noted or expressed distress this shift.
[2016-09-03] MEDS: Alum-Mag Hydrox-Simeth 30 mL Suspension PO PRN (08:16)
[2016-09-03 08:37] VITALS: BP 125/71; PULSE 69; RESP 16
[2016-09-03] MEDS: DULoxetine 30 mg DR Capsule PO SCH (08:51)
[2016-09-03] MEDS: HYDROcodone-APAP 5-325 mg Tablet PO PRN ×2 (08:54→13:08)
--- NOTE | 2016-09-03 13:34 | NUR ---
Obs Dayshift Pt is disorganized, forgetful, easily confused, despondent, delusional, poor outlook for future. Pt is in the milieu for each meal, takes over an hour to eat, restless, up and down often, in and out of her room to the DR, etc. Pt is often stating that she needs more salt and has a disorder that is requiring her to add salt to everything and that is what is causing her mental issues at the moment. Pt is hopeless, helpless, sad. Pt has many complaints about health issues, questioning often if her thoughts are because of health issues, mental health issues, or if the Dr's are wrong and wondering about second opinions. Engages little w/ peers, attends groups but needs redirection often. Poor ADL's, ok meals
[2016-09-03] MEDS ORDERED: Lactulose 20 Gm/30 mL 30 mL Syrup PO ONE (13:40)
--- NOTE | 2016-09-03 13:41 | PCM.PNMED ---
Subjective Date of Service September 03, 2016 Subjective nausea improved,no more dizziness. complains of constipation. Exam Vital Signs Vital Sign - Last Date Time Temp Pulse Resp B/P Pulse Ox O2 Delivery O2 Flow Rate FiO2 09/03/16 08:37 36.3 69 16 125/71 09/01/16 08:05 100 Room Air Intake and Output 09/02/16 09/02/16 09/03/16 Cumulative From/Thru 15:00 23:00 07:00 08/24/16 04:09 - 09/01/16 17:18 Intake Total 02453 ml Output Total 89982 ml Balance 5071 ml Intake Oral 36709 ml IV Total 39246 ml Output Urine Total 69775 ml # Voids 11 # Bowel Movements 6 Exam Alert and oriented -3, no distress. Fluent speech Anicteric sclera. Lungs are clear with normal rate and effort Heart is regular without murmur gallop or rub Abdomen soft nontender, flat Extremities are free of edema. Skin is free of rash or lesions. IVs and Medications Medications Reviewed: Medications were reviewed in detail Lab and Diagnostics Result Diagram: 08/31/16 0615 09/03/16 0755 X-Rays, CTs and MRIs PROCEDURE: CT ABDOMEN AND PELVIS WITH CONTRAST (PNL-7102) INDICATIONS: gen abd pain TECHNIQUE: After the administration of intravenous contrast, 5 mm thick sections acquired from the diaphragm to the symphysis. 5 mm coronal and sagittal reformats were acquired. For radiation dose reduction, the following was used: automated exposure control, adjustment of mA and/or kV according to patient size. COMPARISON: [facility], CT, CT ABD PELVIS W CON, 01/22/2016, 23:50. FINDINGS: ABDOMEN: Lung bases: Lung bases are clear. Heart size is normal. Solid organs: Multiple stable hypodensities throughout the liver consistent with benign hepatic cysts. Otherwise the liver is normal. The spleen is normal in size and enhancement. Gallbladder is surgically absent. Biliary system is non dilated. Pancreas enhances normally. No adrenal nodules. Bilateral prominent collecting systems with mild right-sided ureterectasis. There is a 9 mm linear density adjacent to the dependent bladder wall (se 2 im 59). Uterus is present. Peritoneum and bowel: Bowel loops demonstrate normal wall thickness and caliber. No free fluid or air. Nodes and vessels: No retroperitoneal or mesenteric adenopathy by size criteria. Aorta and inferior vena cava are normal in size. Miscellaneous: No ventral hernias. PELVIS: Genitourinary: Bladder wall thickness is normal. Miscellaneous: No inguinal hernias or adenopathy. Bones: No suspicious bony lesions. No vertebral body compression fractures. IMPRESSION: 1. Right-sided hydronephrosis and ureterectasis may represents the sequelae of a radiographically occult tiny distal right ureteral calculus or a recently passed calculus. If patient's clinical symptoms continue recommend a CT urogram to evaluate for noncalcified obstructing lesion. 2. Linear metallic density adjacent to or less likely in the posterior wall of the bladder likely represents a tubal occlusion device. Please correlate with clinical history for placement of tubal occlusion devices. 3. There are no urgent discrepancy with the pulmonary report. Dictated by: Mainor Dyer M.D. on 08/24/2016 at 7:59 Approved by: Mainor Dyer M.D. on 08/24/2016 at 8:09 Assessment & Plan The patient is a 66-year-old female presents with hyponatremia and a history of nausea and vomiting #. Dizziness/orthostasis (resolved) #. Nausea and vomiting -Resolved #. Hyponatremia , improved -Patient appears to have potomania -Most likely aggravated by nausea and vomiting -There was thought that the patient's hyponatremia was exacerbated by Ultram/ fluoxetine as SSRIs can exacerbate hyponatremia. After discussion with psych ( Dr. Galaviz) he feels that the fluoxetine could potentially be adding to the patient's hyponatremia and this has been stopped. -Resolved, we will recheck her BMP tomorrow. September 03. #. Essential Hypertension, POA and stable. -The patient's blood pressure has been significantly high as well as her pulse which actually may be contributing to the patient's dizziness -We have discontinued metoprolol 12.5 mg twice a day (08/27/16) -We have increased propanolol to 60mg twice a day (hopefully this will also help with the patient's agitation, as recommended by psychiatry, however we will continue to monitor the patient and she has had some reports of orthostasis recently which has now resolved but should be monitored) -Continue amlodipine 10 mg daily. #. Chronic back/right leg pain, POA and stable. -Continue baclofen -Amitriptyline has been switched to Cymbalta on 08/28/2016.. -Continue tramadol, Vicodin and use Oxycodone when tylenol dosing is a potential problem. -We will continue Mobic 15 mg daily -We will continue Cymbalta 30mg (08/28/16) #. Depression/psychosis, POA is improving. -Fluoxetine was discontinued (possible component of SIADH.) -Sitter at bedside as needed, minimize narcotics if possible -Patient's Seroquel was increased to 50 mg 3 times a day (08/29/2016) and we will continue -Patient was started on Cymbalta (08/28/2016)and increase to 60 mg, amitriptyline was discontinued -Continue to monitor -Dr. Galaviz has been consulted for psychiatry and we greatly appreciate his time and expertise. # constipation -continue senna and colace -1 time dose of lactulose given Disposition: She has made suicidal and homicidal comments to Senior Hr Business Partner and to Nursing Staff today. She is medically stabilized. She was detained by the [facility] as a grave danger to self and others and was admitted to the Psychiatric facility. will follow up with patient tomorrow and probably sign off GI Prophylaxis: H2 any VTE Prophylaxis: Sub-Q Enoxaparin VTE Mechanical Devices: Venous Foot Pump Resuscitation Status: CPR: Attempt Resuscitation Jony Yeung MD September 03, 2016 13:40
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
--- NOTE | 2016-09-04 03:06 | NUR ---
Nursing Torrey Pt had a pleasant visit with her spouse during the evening. She presents as well groomed, pleasant, social and interactive on the unit. Attended evening group, watched tv and visited with female peers prior to retiring to bed. She was showing empathy and kind support to a peer who was tearful on the unit. No behavioral outbursts and appeared more pulled together during the evening time. Took scheduled medication without difficulty. She has remained asleep since 2314 with no noted distress or awakening per protocol checks. Addendum: 09/04/16 at 0550 by MUSTAPHA LEZAMA RN Adequate sleep through the night with no noted distress or awakening per protocol checks. Total sleep over 6.5 hours.
--- NOTE | 2016-09-04 05:15 | NUR ---
Observations 1900 - 0700 Pt was visiting with in piano room when the shift started and it appeared to go well. Pt was observed to be friendly, confused, delusional, social, bright when engaged and out on the unit most of the evening. Pt was pleasant, polite and cooperative when approached. Pt maintained behavior throughout the shift. Pt speech and eye contact was ok. Pt attended wrap up group. Pt stated her positive for the day was "pretty good day, I'm less delusional and my visited" Pt rated her mood for the day 10/10, with 10 being the best. Pt was social with peers and staff when approached. Pt first appeared asleep at 2315 and has slept well through the night. Pt was observed every 15 minutes through the night as ordered. Pt is currently asleep with respirations apparent.
--- NOTE | 2016-09-04 06:28 | NUR ---
Prn Zofran ODT 4mg po given @ 0628 for c/o nausea. Oncoming shift to assess medication efficacy. Pt had bout of diarrhea upon awakening. New clothing and bedding provided. Pt pleasant and cooperative with care.
[2016-09-04] MEDS: DULoxetine 30 mg DR Capsule PO SCH (07:45)
[2016-09-04 08:36] VITALS: BP 135/73; PULSE 78; RESP 16
[2016-09-04 08:45] LABS: BASOPHILS % (AUTO) 0.9 % (0-3); EOSINOPHILS % (AUTO) 4.5 % (0-5); MONOCYTES % (AUTO) 6.3 % (4-12); Mean Corpuscular Hemoglobin 29.7 pg (27.0-35.0); Mean Corpuscular Volume 89.1 fL (81-100); NEUTROPHILS % (AUTO) 64.2 % (40-74); Platelet Count 478 bil/L (150-400)
[2016-09-04 09:11] LABS: Magnesium 2.4 mg/dL (1.6-2.6)
--- NOTE | 2016-09-04 09:49 | NUR ---
Nursing: Day shift; 0700 to 1500 S: "I feel like I am in hell...Like I am making myself and others in hell... I can't swallow...have pain in my back, knee, leg...Is it time for my pain medicine? (When told that she received the PRN pain meds when she asks, she gets up and walks around to see how much pain she is having at the moment.) I'm not sure what is reality...Are those voices real? (as peers around her are talking in a group). ...Keep thinking about the past...I'm depressed." O: Mariangel stated she was nauseated but has not vomited. Has been on the toilet twice in the last 2 hours with loose stool. "He really gave me something to clean me out". Cooperative with lab draw (but complained that it hurt. At 0915, accepted Tramadol 100 mg prn for pain (at level she could not rate numerically). At 1000, still grimacing as she walks. Assessment: pain control. Pt forgets when she had last pain medication. Asks frequently. Pain does not appear to be relieved no matter what medication is given. A: Ruminating about past as a focus. Depressed. confused. pain not well controlled. GI complaints. Childlike. Many needy requests. P: Continue to assess for effectiveness of med regimen
[2016-09-04 12:56] VITALS: BP 138/73
[2016-09-04] MEDS: Benzocaine-Menthol Lozenge 2/Pkg PO PRN ×2 (13:07→15:43)
--- NOTE | 2016-09-04 14:04 | PCM.PNMED ---
Subjective Date of Service September 04, 2016 Subjective Patient had 2 bowel movements yesterday. Nausea resolved. Dizziness resolved. Hyponatremia stable. Exam Vital Signs Vital Sign - Last Date Time Temp Pulse Resp B/P Pulse Ox O2 Delivery O2 Flow Rate FiO2 09/04/16 12:56 36.7 138/73 09/04/16 08:36 78 16 09/01/16 08:05 100 Room Air Intake and Output 09/03/16 09/03/16 09/04/16 Cumulative From/Thru 15:00 23:00 07:00 08/24/16 04:09 - 09/01/16 17:18 Intake Total 59840 ml Output Total 51917 ml Balance 5071 ml Intake Oral 50573 ml IV Total 34491 ml Output Urine Total 27581 ml # Voids 11 # Bowel Movements 6 Exam Alert and oriented -3, no distress. Fluent speech Anicteric sclera. Lungs are clear with normal rate and effort Heart is regular without murmur gallop or rub Abdomen soft nontender, flat Extremities are free of edema. Skin is free of rash or lesions. IVs and Medications Medications Reviewed: Medications were reviewed in detail Lab and Diagnostics Result Diagram: 09/04/1681409/04/1615 X-Rays, CTs and MRIs PROCEDURE: CT ABDOMEN AND PELVIS WITH CONTRAST ([id number]) INDICATIONS: gen abd pain TECHNIQUE: After the administration of intravenous contrast, 5 mm thick sections acquired from the diaphragm to the symphysis. 5 mm coronal and sagittal reformats were acquired. For radiation dose reduction, the following was used: automated exposure control, adjustment of mA and/or kV according to patient size. COMPARISON: [facility], CT, CT ABD PELVIS W CON, 01/22/2016, 23:50. FINDINGS: ABDOMEN: Lung bases: Lung bases are clear. Heart size is normal. Solid organs: Multiple stable hypodensities throughout the liver consistent with benign hepatic cysts. Otherwise the liver is normal. The spleen is normal in size and enhancement. Gallbladder is surgically absent. Biliary system is non dilated. Pancreas enhances normally. No adrenal nodules. Bilateral prominent collecting systems with mild right-sided ureterectasis. There is a 9 mm linear density adjacent to the dependent bladder wall (se 2 im 59). Uterus is present. Peritoneum and bowel: Bowel loops demonstrate normal wall thickness and caliber. No free fluid or air. Nodes and vessels: No retroperitoneal or mesenteric adenopathy by size criteria. Aorta and inferior vena cava are normal in size. Miscellaneous: No ventral hernias. PELVIS: Genitourinary: Bladder wall thickness is normal. Miscellaneous: No inguinal hernias or adenopathy. Bones: No suspicious bony lesions. No vertebral body compression fractures. IMPRESSION: 1. Right-sided hydronephrosis and ureterectasis may represents the sequelae of a radiographically occult tiny distal right ureteral calculus or a recently passed calculus. If patient's clinical symptoms continue recommend a CT urogram to evaluate for noncalcified obstructing lesion. 2. Linear metallic density adjacent to or less likely in the posterior wall of the bladder likely represents a tubal occlusion device. Please correlate with clinical history for placement of tubal occlusion devices. 3. There are no urgent discrepancy with the pulmonary report. Dictated by: Mainor Dyer M.D. on 08/24/2016 at 7:59 Approved by: Mainor Dyer M.D. on 08/24/2016 at 8:09 Assessment & Plan The patient is a 66-year-old female presents with hyponatremia and a history of nausea and vomiting #. Dizziness/orthostasis (resolved) #. Nausea and vomiting -Resolved #. Hyponatremia , improved -Patient appears to have potomania -Most likely aggravated by nausea and vomiting -There was thought that the patient's hyponatremia was exacerbated by Ultram/ fluoxetine as SSRIs can exacerbate hyponatremia. After discussion with psych ( Dr. Galaviz) he feels that the fluoxetine could potentially be adding to the patient's hyponatremia and this has been stopped. -Resolved, #. Essential Hypertension, POA and stable. -The patient's blood pressure has been significantly high as well as her pulse which actually may be contributing to the patient's dizziness -We have discontinued metoprolol 12.5 mg twice a day (08/27/16) -We have increased propanolol to 60mg twice a day (hopefully this will also help with the patient's agitation, as recommended by psychiatry, however we will continue to monitor the patient and she has had some reports of orthostasis recently which has now resolved but should be monitored) -Continue amlodipine 10 mg daily. #. Chronic back/right leg pain, POA and stable. -Continue baclofen -Amitriptyline has been switched to Cymbalta on 08/28/2016.. -Continue tramadol, Vicodin and use Oxycodone when tylenol dosing is a potential problem. -We will continue Mobic 15 mg daily -We will continue Cymbalta 30mg (08/28/16) #Hypercalcemia -Stable #. Depression/psychosis, POA is improving. -Fluoxetine was discontinued (possible component of SIADH.) -Sitter at bedside as needed, minimize narcotics if possible -Patient's Seroquel was increased to 50 mg 3 times a day (08/29/2016) and we will continue -Patient was started on Cymbalta (08/28/2016)and increase to 60 mg, amitriptyline was discontinued -Continue to monitor -transferred to inpatient psychiatric # constipation, resolved -continue senna and colace -1 time dose of lactulose given 09/03 Disposition: She has made suicidal and homicidal comments to Network Intern and to Nursing Staff today. She is medically stabilized. She was detained by the [facility] as a grave danger to self and others and was admitted to the Psychiatric facility. Patient's nausea, vomiting and dizziness has resolved. Hyponatremia stable. Thank you for taking over her care. Medicine Will sign off . Please call orange team pager if any questions GI Prophylaxis: H2 any VTE Prophylaxis: Sub-Q Enoxaparin VTE Mechanical Devices: Venous Foot Pump Resuscitation Status: CPR: Attempt Resuscitation Jony Yeung MD September 04, 2016 14:04
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
[2016-09-04] MEDS: HYDROcodone-APAP 5-325 mg Tablet PO PRN (16:58)
--- NOTE | 2016-09-04 20:50 | NUR ---
Obs Dayshift Pt appears less confused than yesterday, attending some groups. Pt is in bed often stating that she is sore, achy, and forgetful. Pt is often asking for things from peers and staff. Pt continues to be hopeless, helpless. visited for a short time, pt stated that she was overly tired and asked him to leave so she could nap. Ok ADL's, Good meals - continues to be restless and takes very long time to eat each meal due to constantly getting up to take short naps and going back to her meal.
--- NOTE | 2016-09-04 22:57 | NUR ---
NURSING NOTE [id number] Mood: "This is probably my best day here!" *chuckles* Affect: pleasant, calm, forgetful at times Behavior: visible in DR, social w/peers, performed some PT exercises for her knee in her room, approached staff frequently to make requests for snacks and asked this freelance writer off and on for clarification on how to do simple tasks and reporting that she is confused and forgetful, e.g.; she pointed to an exercise in her PT booklet that stated "do this 20 times" and she asked this freelance writer if she should "do it 20 times or 10 times? I'm so confused!" Thought processes: tangential, scattered at times, denies SI/HI and when this freelance writer found stapled paperwork in her room and confiscated the justin she reported "I would never, ever hurt myself." Reported that "I realized today that I've been delusional and that I'm not really in hell" also stated she has realized that "the voice I was hearing in my head was actually my own voice. It was a delusional hallucination".
[2016-09-05] MEDS: HYDROcodone-APAP 5-325 mg Tablet PO PRN ×3 (01:49→15:22)
--- NOTE | 2016-09-05 06:26 | NUR ---
Sleep 11p-8a Pt slept from [id number]. She awoke c/o nausea and pain. Requested and received Zofran 4mg po, [place] 1 tab and Ambien 5mg po all given @ 0146. She returned to sleep and slept from [id number]. Total sleep 7 hours.
[2016-09-05] MEDS: DULoxetine 30 mg DR Capsule PO SCH (08:41)
[2016-09-05] MEDS ORDERED: DULO30CA PO (14:20)
[2016-09-05] MEDS ORDERED: MELO-259 PO (14:20)
[2016-09-05] MEDS ORDERED: QUET25TA73 PO (14:20)
--- NOTE | 2016-09-05 14:24 | PCM.DIMED ---
Discharge Instructions Date of Service September 05, 2016 Dates of Hospitalization August 24, 2016 at 09:38 Discharge Diagnosis Discharge Diagnosis AXIS I: Mood disorder unspecified Psychotic disorder unspecified vs schizophrenia. Rule out autism spectrum disorder AXIS II: Histrionic traits. AXIS III: See past medical history AXIS IV: Unclear AXIS V: GAF 45 Medication Instructions Additional med instructions I Strongly encouraged patient to follow up with outpatient care: 1-Recommended patient takes medication as prescribed and not alter this unless under the direct care of a provider. 2-Recommend client refrain from recreational drugs and alcohol while taking psychiatric medications. 3-Recommend patient attempt to find a therapist or group to deal with impulse control control issues Diet Discharge Diet: No restrictions Activity Discharge Activity: No restrictions Call your provider Call your provider for: Fever or Chills Patient Instructions Follow-up plan Client to follow up with established counselor Lori Roman in the next 2 weeks Client to follow up with primary care establish Dr. Broderick Montejo in the next 2 weeks Follow-up with PCP in: 2 weeks Edis Curiel MD September 05, 2016 14:24
--- NOTE | 2016-09-05 14:35 | NUR ---
Obs Dayshift Pt is polite and engaging on a superficial level. Pt continues to appear disorganized in her thought process. Pt states that she wants to go home but is still second guessing herself and questioning real and not real. Pt is up and about the unit a little more today than the past few days. Good ADL's, Good meals
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
[2016-09-05] MEDS ORDERED: ONDA4TAB6 PO (15:59)
[2016-09-05 16:05] VITALS: BP 117/53; PULSE 70; RESP 16
--- NOTE | 2016-09-05 19:45 | NUR ---
Surveillance Monitor/Counselor: S/O: Patient slept 7 hours last night as per staff. She denies S/I and H/I. She also denies auditory and visual hallucinations. Outpatient appointment: ERIKA Mckeon, 09/11/16 at 9:25am check-in. Patient will schedule out-patient appointment with her psychologist, Patria Gordon, Ph.D once psychologist returns to her office September 11, 2016. A: Patient is cooperative, hopeful, pleasant, future oriented. P: Follow care plan, coordinate with out-patient providers.
--- NOTE | 2016-09-05 20:10 | NUR ---
DISCHARGE NOTE Pt. discharged at 19:20 accompanied by her . She signed her discharge paperwork prior to leaving and her prescriptions were faxed to her preferred pharmacy. Pt. denied any safety issues prior to leaving and was motivated for discharge and futuristic. She reported she was looking forward to continuing her care with a counselor on an outpatient basis.
== END 2016-09-05 19:20 | disposition home or self-care (01) | DRG 641 ==
LOC: SED 04:02 → MOC 09:38 → MHC 09-01 15:34
PROVIDERS: ADMIT Hospitalist; ATTEND Hospitalist
DX: E87.1 Hypo-osmolality and hyponatremia (principal); R45.851 Suicidal ideations; F39 Unspecified mood [affective] disorder; I10 Essential (primary) hypertension; G89.29 Other chronic pain; F32.9 Major depressive disorder, single episode, unspecified; F60.4 Histrionic personality disorder; F29 Unspecified psychosis not due to a substance or known physiological condition; E83.52 Hypercalcemia; F43.10 Post-traumatic stress disorder, unspecified

== ENCOUNTER 2016-09-08 06:31 | Emergency (ER) | payer MEDICARE ==
[~2016-09-08] VITALS: Ht 157.5 cm; Wt 54.5 kg
[~2016-09-08 06:31] MED LIST changes: -AMIT10TA6 PO; +AMT50T PO; +BACL10TA PO; +DULO30CA PO; -FLUO40CA PO; -LEVO50TA6 PO; -LORA1TAB PO; +MELO-259 PO; +ONDA4TAB6 PO; +QUET25TA73 PO; +SODI1TAB2 PO; -TEMA7.5C14 PO; -WALK1EAC55
--- NOTE | 2016-09-08 06:36 | ED.REPORT ---
HPI-General Illness Date of Service September 08, 2016 ED Provider: Miguel Hooker MD Pt is a 66 y.o. female with a hx of depression, "extreme anxiety", chronic nausea and vomiting, hyperthyroidism, HTN, and COPD who presents to the ED via EMS accompanied by her after she was "unable to get out of bed today". Pt was recently discharged from the hospital on 09/05/16 after being admitted for nausea, vomiting, hypornatremia, and hypertension. During that admission she was transferred to psych service due to depression and possible psychosis. The pt underwent therapy to help with coping skills and she was administered Cymbalta and Seroquel. During her admission she became more engaged with the psychiatric treatment and denied SI. Upon discharge she was written for a prescription for Cymbalta, Seroquel, and Amitriptyline in addition to her already taking Baclofen, Levothyroxine, and Tramadol. According to her he was unable to cone picker her prescription until 09/06/16 and the pt refused to take them yesterday as she was "too sleepy". He states the pt has had nothing PO for 24 hrs because she has been sleeping nonstop. When he attempted to get her out of bed this morning she would not move. When the pt is asked questions during the examination she responds only with "no" or "I don't know". She reports pain but when asked where she states "I don't know" and screams or states "ouch" to light touch. Pt is uncooperative with her exam and is a poor historian. Patient's denies any trauma, ingestions or SI. She has apparently not established with a psychiatrist or psychologist since being discharged. When asked if the patient wants to be in the emergency room she says "no" and when asked if she would like to go home she states "yes". Nursing Notes Stated Complaint: UNABLE TO GET OUT OF BED Nursing Notes Reviewed: Yes Allergies: Coded Allergies: Sulfa (Sulfonamide Antibiotics) (Verified Allergy, Severe, rash ithcy, ) mirtazapine (Verified Allergy, Severe, swollen face, rash, 09/08/16) Scheduled Amitriptyline (Amitriptyline) 50 Mg Tab 50 MG PO HS Amlodipine (Amlodipine) 10 Mg Tablet 10 MG PO HS Baclofen (Baclofen) 10 Mg Tablet 10 MG PO TID Duloxetine (Cymbalta) 30 Mg Capsule.dr 30 MG PO DAILY Levothyroxine (Synthroid) 50 Mcg Tablet 50 MCG PO DAILY Meloxicam (Meloxicam) 7.5 Mg Tablet 15 MG PO DAILY Quetiapine Fumarate (Quetiapine Fumarate) 25 Mg Tablet 50 MG PO BID Scheduled PRN Ondansetron (Zofran) 4 Mg Tablet 4 MG PO Q4H PRN PRN For Nausea Tramadol (Tramadol) 50 Mg Tablet 50 MG PO TID PRN PRN For Pain Miscellaneous Medications Sodium Chloride (Sodium Chloride) 1 Gm Tablet 1 GM PO General Time Seen by MD: 06:35 Chief Complaint Weakness Hx Obtained From: Patient, Spouse Arrived By: Ambulance Sudden in Onset?: Yes Onset Occurred: 5 - 8 hours ago Symptom Duration: Since onset Recent Healthcare: Recent hospitalization Past Medical History Past Medical History chronic nausea and vomiting - unknown cause Herniated dics low back Right knee tendinitis and bursitis Depression and anxiety gallstones history of blood transfusion hypothyroidism history of severe sepsis and respiratory failure due to aspiration pneumonia Reports: COPD, GERD, Hypertension Past Surgical History Reports: Cholecystectomy Family History noncontributory Smoking History Never Smoker Social History Alcohol Use: Denies alcohol use Drug Use: Denies drug use Other Social History: Good social support, Local resident Ambulatory Status Independent Review of Systems Pain - generalized Unable to Obtain ROS Uncooperative Full Review of Systems Constitutional: Reports: Weakness - generalized Complete sys rev & neg: except as marked. Physical Exam Vital Signs Vital Signs Date Time Temp Pulse Resp B/P Pulse Ox O2 Delivery O2 Flow Rate FiO2 09/08/16 09:08 36.8 105 22 143/72 100 Room Air 09/08/16 07:30 37.7 116 20 138/81 99 Room Air 09/08/16 06:40 122 16 139/83 99 Room Air Initial VS: Reviewed Extremities: Vascular intact, Neuro intact Skin: Warm, Dry, No cyanosis General/Constitutional: Awake, Alert Behavior: Positive: Uncooperative Answers every question with "no" and "I don't know" Not responding to internal stimuli Head / Eyes: Atraumatic, Normocephalic, PERRL, EOMI Neck: Atraumatic, Supple, No meningismus Respiratory / Chest: Atraumatic, Breath sounds NL, Breath sounds = bilat, No respiratory distress Cardiovascular: Heart rate NL, Regular rhythm, Heart sounds NL, Cap refill not delayed, Peripheral circulation NL Abdomen: Atraumatic, Soft, Non-tender, No distention Neurologic: Speech NL Not participatory in neurologic exam Moves all extremities spontaneously with ease. Good strength and tone in all extremities Interpretation & Diagnostics Lab Results Interpretation Result Diagram: 09/08/16 0700 09/08/16 0924 Test 09/08/16 07:00 09/08/16 07:10 09/08/16 07:18 09/08/16 09:24 White Blood Count 21.4th/mm3 (3.8-10.1) Red Blood Count 4.92mil/mm3 (3.90-5.20) Hemoglobin 14.6g/dL (12.0-15.6) Hematocrit 43.6% (35.0-46.0) Mean Corpuscular Volume 88.6fL (81-100) Mean Corpuscular Hemoglobin 29.7pg (27.0-35.0) Mean Corpuscular Hemoglobin Concent 33.5% (32.0-37.0) Red Cell Distribution Width 13.2% (12.3-15.4) Platelet Count 536bil/L (150-400) Neutrophils (%) (Auto) 87.2% (40-74) Lymphocytes (%) (Auto) 7.7% (14-46) Monocytes (%) (Auto) 4.4% (4-12) Eosinophils (%) (Auto) 0% (0-5) Basophils (%) (Auto) 0.2% (0-3) Lactic Acid Level 1.6mmol/L (0.4-2.0) Total Bilirubin 0.3mg/dL (0.0-1.2) Aspartate Amino Transf (AST/SGOT) 20U/L (0-50) Alanine Aminotransferase (ALT/SGPT) 19U/L (0-32) Alkaline Phosphatase 128U/L (25-165) Total Protein 8.6g/dL (6.4-8.4) Albumin 4.3g/dL (3.4-5.0) Thyroid Stimulating Hormone (TSH) 0.441uIU/mL (0.450-4.500) Free Thyroxine 1.32ng/dL (0.82-1.77) Hold Vasquez Top Tube Received (Received) Alcohols < 10mg/dL (0-10) Hold Urine Received (Received) Urine Color Yellow (YELLOW) Urine Appearance Clear (CLEAR,HAZY) Urine pH 6.0 (5.0-8.0) Urine Specific [place] 1.024 (1.003-1.035) Urine Protein Negativemg/dL (NEG,TRACE) Urine Glucose (UA) Negativemg/dL (NEGATIVE) Urine Ketones 80mg/dL (NEGATIVE) Urine Occult Blood Negative (NEGATIVE) Urine Nitrite Negative (NEGATIVE) Urine Bilirubin Negative (NEGATIVE) Urine Urobilinogen Normalmg/dL (NORMAL) Urine Leukocyte Esterase Negative (NEGATIVE) Urine RBC 0-2/hpf (0-2) Urine WBC 0-5/hpf (0-5) Urine Epithelial Cells Few/hpf (NONE-MOD) Urine Crystals None seen (NONE SEEN) Urine Bacteria None/hpf (NONE-FEW) Urine Hyaline Casts None/lpf (NONE) Urine Granular Casts None seen (NONE SEEN) Urine Waxy Casts None seen (NONE SEEN) Urine Red Blood Cell Casts None seen (NONE SEEN) Urine White Blood Cell Casts None seen (NONE SEEN) Urine Mucus None seen (None Seen) Urine Trichomonas None seen (NONE SEEN) Urine Yeast None (NONE SEEN) Urinalysis Comment None Urine Culture Reflexed Not indicated Sodium Level 142mEq/L (134-144) Potassium Level 4.0mEq/L (3.5-5.2) Chloride Level 103mEq/L (97-108) Carbon Dioxide Level 19mmol/L (18-29) Blood Urea Nitrogen 30mg/dL (8-27) Creatinine 0.78mg/dL (0.57-1.00) Estimat Glomerular Filtration Rate 106mL/min (>59) Glucose Level 126mg/dL (60-99) Calcium Level 9.1mg/dL (8.5-10.1) CBC Interpretation WBC elevated Urinalysis Interpretation Urinalys reviewed and NL Drug Screen / Level Interp Urine positive opiate, Urine pos barbiturates, Serum positive tricyclic X-Ray Chest Interpretation Chest Xray Interpretation: IMPRESSION: No acute process. Dictated by: Ezekiel Verde M.D. on 09/08/2016 at 8:11 Approved by: Ezekiel Verde M.D. on 09/08/2016 at 8:11 Re-Eval/Medical Decision Med Decision/Clinical Course Pt is a 66 y.o. female with a hx of depression, "extreme anxiety", chronic nausea and vomiting, hyperthyroidism, HTN, and COPD who presents to the ED via EMS accompanied by her after she was "unable to get out of bed today". Pt was recently discharged from the hospital on 09/05/16 after being admitted for nausea, vomiting, hypornatremia, and hypertension. During that admission she was transferred to psych service due to depression and possible psychosis. The pt underwent therapy to help with coping skills and she was administered Cymbalta and Seroquel. During her admission she became more engaged with the psychiatric treatment and denied SI. Upon discharge she was written for a prescription for Cymbalta, Seroquel, and Amitriptyline in addition to her already taking Baclofen, Levothyroxine, and Tramadol. According to her he was unable to cone picker her prescription until 09/06/16 and the pt refused to take them yesterday as she was "too sleepy". He states the pt has had nothing PO for 24 hrs because she has been sleeping nonstop. When he attempted to get her out of bed this morning she would not move. When the pt is asked questions during the examination she responds only with "no" or "I don't know". She reports pain but when asked where she states "I don't know" and screams or states "ouch" to light touch. Pt is uncooperative with her exam and is a poor historian. Patient's denies any trauma, ingestions or SI. She has apparently not established with a psychiatrist or psychologist since being discharged. When asked if the patient wants to be in the emergency room she says "no" and when asked if she would like to go home she states "yes". Here in the emergency room she is afebrile, hemodynamically stable and nonparticipatory with history taking and examination. When asked to move her arms and legs she refuses though she is witnessed to easily be moving all 4 extremities with no lateralizing neurologic deficits whatsoever. There are no signs of trauma on her examination. Her presentation is not strokelike in nature. She has no meningismus or fever suggestive of meningitis. Her constellation of symptoms and presentation today is not consistent with an acute medical process and is in my assessment clearly related to underlying psychiatric disorder. Laboratory studies were notable as below: UA is not notable for a UTI. Bedside toxicology screen is positive for barbiturates, TCA, and oxycodone. CBC leukocytosis of 21.4 otherwise unremarkable CMP sodium of 138 Good kidney function CO2 of 17 TSH low at 0.441 Anion gap is 24 Lactic acid 1.6 CXR: Obtained, reviewed and interpreted by myself shows no evidence of infiltrates, effusions or pneumothorax. Cardiac and mediastinal silhouette normal. No bony or soft tissue abnormalities. The patient repeatedly answers that she does not want to be in the emergency room. She was recently admitted to psychiatry service who has not been taking her medications and has not followed up for outpatient resources. I find it unlikely that she would benefit from readmission. I kept her here in the emergency department to be evaluated by our mental health social media director Jeovany Chapa. In regards to the patient's leukocytosis she is afebrile without any other findings suggestive of acute infectious process. I suspect that much of this may be related to her dehydration and refusal to take PO fluids. Her bicarbonate is slightly low and her anion gap is mildly elevated. I suspect that this is additionally all related to volume depletion. Here in the emergency room she was treated with several liters of IV fluids and eventually stated that she wanted to eat and drink. She was provided with a meal and fluids which she consumed in their entirety. She continued to deny suicidal ideation. Repeat metabolic panel was normal and bicarbonate normalized with fluids and eating. I see no evidence at this time of any immediate concerning process. Given that she is now drinking, denying suicidal ideation and refusing admission our social media director does not feel that further immediate intervention is warranted. With clarified the patient which medication she should be taking and the importance of following up with outpatient psychiatry as previously arranged. Prior to discharge follow-up and return precautions were reviewed in detail with the patient and her who verbalized understanding and agreement with the plan. The patient was discharged in stable condition. 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 Dsicussed lab results with pt and . Counseled Regarding: Diagnosis, Lab results, Need for follow-up Discharge & Departure Primary Impression: Acute situational disturbance Additional Impressions: Depression Depression Type: unspecified Qualified Code: F32.9 - Major depressive disorder, single episode, unspecified Anxiety Noncompliance by refusing intervention or support Disposition: Home Discharge Condition All VS Reviewed: Yes Condition: Improved Additional Instructions: Thank you for seeking care at the emergency room. It is difficult for us to make definitive diagnoses in the ED but we believe that you are experiencing symptoms related to your mental health disorder and anxiety. Our primary goal today in the ED was to evaluate you for any life-threatening conditions. Your evaluation was reassuring. You should follow-up with your primary doctor and outpatient mental health provider in the next week. Please take all your medications as prescribed. You should return to the ED immediately if you develop thoughts of harming herself/others, if you are not eating/drinking, if you feel that you are having a medical or psychiatric emergency, if you develop fevers, vomiting, cough, shortness of breath, chest pain, lightheadedness, weakness or any other concerning signs or symptoms. Thank you for letting us partake in your care today. Referrals: Karli Michaels (PCP) Lilian Attestation Portions of this note were transcribed by Daniel Ortega. I, Dr. Hooker personally performed the history, physical exam and medical decision-making; I reviewed and confirmed the accuracy of the information in the transcribed note. Signed by: Lilian Phelps, 09/08/16 and 1024 copies to: Karli Michaels Beck O MD September 08, 2016 06:36 DANIEL ORTEGA September 08, 2016 06:46 Miguel Hooker MD September 08, 2016 06:36 DANIEL ORTEGA September 08, 2016 06:46
[2016-09-08 06:40] VITALS: BP 139/83; PULSE 122; RESP 16; O2SAT 99
[2016-09-08 07:16] LABS: BASOPHILS % (AUTO) 0.2 % (0-3); EOSINOPHILS % (AUTO) 0 % (0-5); MONOCYTES % (AUTO) 4.4 % (4-12); Mean Corpuscular Hemoglobin 29.7 pg (27.0-35.0); Mean Corpuscular Volume 88.6 fL (81-100); NEUTROPHILS % (AUTO) 87.2 % (40-74); Platelet Count 536 bil/L (150-400)
[2016-09-08 07:30] VITALS: BP 138/81; PULSE 116; RESP 20; O2SAT 99
[2016-09-08] MEDS ORDERED: 0.9% Sodium Chloride 1,000 ML IV ONE ×3 (07:30→07:55)
[2016-09-08 07:41] LABS: APPEARANCE,URINE CLEAR (CLEAR,HAZY); COLOR,URINE YELLOW (YELLOW)
[2016-09-08 07:42] LABS: OCCULT BLOOD,URINE NEGATIVE (NEGATIVE); UROBILINOGEN,URINE NORMAL (NORMAL)
--- NOTE | 2016-09-08 08:13 | DRSVH ---
PROCEDURE: X-RAY CHEST, TWO VIEWS ([id number]) INDICATIONS: r/o pna TECHNIQUE: 2 views of the chest were acquired. COMPARISON: [facility], CR, XR CHEST 2VW, 12/20/2015, 13:44. [facility], C R, XR CHEST 2VW, 12/06/2015, 10:24. FINDINGS: Surgical changes and devices: None. Lungs and pleura: No pleural effusions or pneumothorax. Lungs are clear. Mediastinum: Mediastinal contours are normal. Heart size is normal. Bones and chest wall: No suspicious bony abnormalities. Soft tissues appear unremarkable. IMPRESSION: No acute process. Dictated by: Ezekiel Verde M.D. on 09/08/2016 at 8:11 Approved by: Ezekiel Verde M.D. on 09/08/2016 at 8:11
[2016-09-08 09:08] VITALS: BP 143/72; PULSE 105; RESP 22; O2SAT 100
[2016-09-08 11:06] VITALS: BP 154/66; PULSE 118; RESP 20; O2SAT 100
== END 2016-09-08 10:44 | disposition home or self-care (01) ==
LOC: SED 06:31
DX: F43.0 Acute stress reaction (principal); F32.9 Major depressive disorder, single episode, unspecified; F41.9 Anxiety disorder, unspecified; Z91.19 Patient's noncompliance with other medical treatment and regimen; E05.90 Thyrotoxicosis, unspecified without thyrotoxic crisis or storm; I10 Essential (primary) hypertension; J44.9 Chronic obstructive pulmonary disease, unspecified; K21.9 Gastro-esophageal reflux disease without esophagitis; Z88.2 Allergy status to sulfonamides; Z88.8 Allergy status to other drugs, medicaments and biological substances
CPT/HCPCS: 36415; 71020; 80048; 80053; 81000; 83605; 84439; 84443; 85025; 96360; 96361; 99284; G0480; J7030